=== PATIENT | female | born 1960 | race Caucasian/White ===

== ENCOUNTER → 2017-09-27 16:07 | Outpatient (CLI) | payer OTHER, SELFPAY ==
--- NOTE | 2017-09-27 16:10 | HPBI_ITS ---
MAMMOGRAPHY - BILATERAL SCREENING REASON FOR EXAM: Female, 57 years old. Routine annual screening examination. PERTINENT HISTORY: Grandmother with breast cancer. Remote left stereotactic breast biopsy. TECHNIQUE: Digital bilateral breast xiomara (3D mammographic acquisition) in the CC and MLO projections. 2-D mediolateral oblique (MLO) and craniocaudad (CC) views of both breasts were obtained. CAD: Full Field Digital Mammography with Computer Added Detection was performed. COMPARISON: Comparison is made with prior study dated June 22, 2016 and June 04, 2015. FINDINGS: Breast Composition: There are scattered areas of fibroglandular density. There are no dominant masses or suspicious calcifications. Once again, a tissue clip marker is seen in the upper deep midportion of the left breast. Stable benign-appearing bilateral axillary lymph nodes. No other significant abnormalities are identified. There has been no significant change since the prior study. HPBI/SCREENING MAMM (CAD), BILAT IMPRESSION: Stable bilateral screening mammogram. Yearly follow-up mammogram recommended. (A) ASSESSMENT CATEGORY: BIRADS Category 2: Benign. A letter regarding these results will be sent to the patient by the facility within 30 days. Approximately 10% of breast cancers are not detected by mammography. A normal mammogram should not delay biopsy of a clinically suspicious abnormality. [id number] Electronically Signed: Brayan Anthony MD at 8:43 EST Tel [phone], Service support ,
== END ==
PROVIDERS: Family Provider Internal Medicine; PCP Internal Medicine; Visit Provider Internal Medicine
DX: Z12.31 Encounter for screening mammogram for malignant neoplasm of breast (principal)
CPT/HCPCS: 77063; 77067

== ENCOUNTER → 2017-11-10 07:55 | Outpatient (CLI) | payer OTHER, SELFPAY ==
--- NOTE | 2017-11-10 07:57 | US_ITS ---
STUDY: ABDOMINAL ULTRASOUND - RIGHT UPPER QUADRANT REASON FOR VISIT: Female, 57 years old. History of fatty infiltration of liver. TECHNIQUE: Ultrasound evaluation of the right upper quadrant was performed with real-time and static minor-scale imaging. TECHNICAL QUALITY: Adequate. COMPARISON: Comparison is made with prior examination dated August 2011. FINDINGS: Liver: The liver measures 15.6 cm. There is increased echogenicity consistent with fatty infiltration. The bile ducts are within normal limits. There is hepatic color flow. The direction of portal flow is hepatopetal. There is no demonstrated mass lesion. Gallbladder: The patient is status post cholecystectomy. Common Bile Duct (C.B.D.): The common bile duct measures 4.5 mm. Pancreas: Normal size of the head, body and tail of the pancreas. There is normal echogenicity of the pancreas. There is no demonstrated pancreatic mass or cyst. Right Kidney: Normal size of the right kidney. The right kidney measures 10.2 cm x 4.87 x 5.0 cm. Normal renal cortex. The right cortex measures 1.2 cm. There is no demonstrated renal mass or cyst. There is no right hydronephrosis. US/Liver IMPRESSION: Fatty infiltration of the liver. Status post cholecystectomy. Electronically Signed: Brayan Anthony MD at 10:59 EDT Tel [phone], Service support ,
== END ==
PROVIDERS: Family Provider Internal Medicine; PCP Internal Medicine; Visit Provider Internal Medicine
DX: K76.0 Fatty (change of) liver, not elsewhere classified (principal); Z90.49 Acquired absence of other specified parts of digestive tract
CPT/HCPCS: 76705

== ENCOUNTER → 2018-07-04 08:09 | Outpatient (CLI) | payer OTHER, SELFPAY ==
--- NOTE | 2018-07-04 08:15 | BD_ITS ---
STUDY: DUAL ENERGY X-RAY ABSORPTIOMETRY / DXA REASON FOR EXAM: Female, 58 years old. The patient is postmenopausal. No loss of height. TECHNIQUE: Bone Mineral Density (BMD) measurements of lumbar spine and bilateral hips were obtained. COMPARISON: Comparison is made with prior examination dated June 22, 2016. FINDINGS: Lumbar Spine (L1-L4): g/cm2 (1.018) / T-score (-1.3) / Z-score (-0.1) Findings are suggestive of osteopenia with a moderate fracture risk. Left Femur Total: g/cm2 (0.959) / T-score (-0.4) / Z-score (0.5) Left Femoral Neck: g/cm2 (0.812) / T-score (-1.7) / Z-score (-0.4) Right Femur Total: g/cm2 (0.925) / T-score (-0.7) / Z-score (0.3) Right Femoral Neck: g/cm2 (0.825) / T-score (-1.5) / Z-score (-0.3) The T-Scores on the most recent prior examination were: Lumbar Spine (L1-L4): There has been worsening of bone density since the previous examination. Left Femur Total: which represents a worsening of 7.9%. Right Femur Total: which represents a worsening of 5.0%. BD/Dexa Bone Density Study IMPRESSION: The patient is considered osteopenic as outlined below according to World Mack Organization (WHO) criteria with a moderate fracture risk. There has been worsening of bone density since the previous examination. Reference Information: The T-score is the number of standard deviations above or below the standard which is normal for young adults at their peak bone mineral density. The World Health Organization (WHO) interprets the T-scores as follows: Above -1 Normal bone density Between -1 and -2.5 Osteopenia Equal to / or below -2.5 Osteoporosis As a practical clinical guideline, osteopenia may be graded as follows: Mild -1 through -1.5 Moderate -1.6 through -2.0 Severe -2.1 through -2.4 The Z-score is the number of standard deviations above or below age-matched controls. A Z-score of less than -1.5 would be considered abnormal. References: 1. NIH Osteoporosis and Related Bone Diseases http://www.osteo.org 2. International Society for Clinical Densitometry http://www.iscd.org 3. National Osteoporosis Foundation http://www.nof.org Electronically Signed: Brayan Anthony MD at 9:45 EST Tel [phone], Service support ,
== END ==
PROVIDERS: Family Provider Internal Medicine; PCP Internal Medicine; Referring Provider Internal Medicine; Visit Provider Internal Medicine
DX: Z78.0 Asymptomatic menopausal state (principal)
CPT/HCPCS: 77080

== ENCOUNTER 2018-10-13 07:00 | Outpatient (RCR) | payer OTHER, SELFPAY ==
--- NOTE | 2018-09-15 08:27 | HP.PTEVAL ---
Patient's Visit Information RYAN PINEDA is a 58 year old F referred to Physical Therapy by Anisha Puga DO with a diagnosis of LUMBAR RADICULOPATHY. Date of Evaluation: 09/15/18 Physical Therapist: Andrea Tee PT, Cert MDT, OCS - Visit Plan Frequency: 2x /Week Duration: 4 Weeks Plan: madhuri ex's,DLS ABD/BACK ,POSTURAL EX',MODALITIES PRN - Subjective Findings: This 58 y/o female presents to physical therapy with lumbar radiculopathy right leg. Patient has symptoms intermmtant for many months.Seen DR christopher PT . Symptoms worse with bending,lifting ,walking ,slouched,standing. Symptoms better with good posture. Symptoms affect sleeping. Bowel/bladder-. Denies parathesia/tingling. Coughing/sneezing -. Location of symptoms lateral hip to knee. Patient has received no traetment. No trauma. Patient cant take MEDS.Patient pain affect QOL and function. SOCIAL: . VOCATION: [employer] - Pain Bilateral Back Pain Intensity (Out of 10): 0 Left Lower Extremity Pain Intensity (Out of 10): 4 Pain Intensity Range: 10 - Objective POSTURE: mild foward posture. GAIT: normal alexis reciprcal pattern. NEURO: denies parathesia/tingling, reflexes L3-4,L4-5,L5-S1 1/3. PALAPTION: unremarkable. SYMMTRIES: alighn. LUMBAR ROM: flexion WNL,extension min loss,side glides min loss. FLEXABLITY: hams min tight - Special Tests L/S Slump test left side: Negative L/S Slump test right side: Negative L/S Left Straight Leg Raise: Negative L/S Right Straight Leg Raise: Negative Lumbar Standing: Flexion - Mechanical Response: No effect Lumbar Standing: Flexion - Symptoms During Testing: Increases Lumbar Standing: Flexion - Symptoms After Testing: No worse Lumbar Standing: Extension - Mechanical Response: No effect Lumbar Standing: Extension - Symptoms During Testing: Decreases Lumbar Standing: Extension - Symptoms After Testing: Better Lumbar Lying: Flexion - Mechanical Response: No effect Lumbar Lying: Flexion - Symptoms During Testing: No effect Lumbar Lying: Flexion - Symptoms After Testing: No effect Lumbar Lying: Extension - Mechanical Response: No effect Lumbar Lying: Extension - Symptoms During Testing: Abolishes Lumbar Lying: Extension - Symptoms After Testing: Better - Goals Goal 1:: Independant with HEP Goal Time Frame: 4-6 Weeks Goal 2:: Independant with posture /body mechanics Goal Time Frame: 4-6 Weeks Goal 3:: Patient to decrease lumbar pain by 50% or greater to improve function Goal Time Frame: 4-6 Weeks Goal 4:: Patient d/c to prophalaxis. Goal Time Frame: 4-6 Weeks Goal 5:: Patient improve lumbar ROM for function of recovery Goal Time Frame: 4-6 Weeks Goal 6:: Patient to improve MARJORIE lumbar score by 50% or greater to improve QOL. Goal Time Frame: 4-6 Weeks - Rehabilitation Potential Physical Therapy Diagnosis: This 58 y/o female presents with lumbar radiculopathy with symptoms radiating to lateral thigh with possble derrangement with pain ,symptoms worse with flexion type of activities thus benifit from skilled PT Rehabilitation Potential: Good - Anticipated Interventions Patient/Client Instruction: Educate patient on: Condition, Plan of Care For the Purpose of:: To decrease pain, To increase ROM, To improve muscle performance and motor function, To improve ability to perform ADL's, To increase tolerance to activity/condition/position, To improve performance and independence with ADL's, To improve ability of physical actions for home/community/work/leisure, To improve health of tissue, To decrease soft tissue restriction, To increase flexibility/ROM, To improve ability to perform tasks related to life management Therapeutic Exercise to Include: Strength training, Body mechanics, Postural training, Flexibilty training, Dynamic Lumbar Stabilization, Madhuri Exercises For the Purpose of:: To decrease pain, To increase ROM, To improve muscle performance and motor function, To increase tolerance to activity/condition/position, To decrease level of supervision to perform tasks, To improve health of tissue, To decrease soft tissue restriction, To increase flexibility/ROM, To improve ability to perform tasks related to life management Manual Therapy Techniques to Include: Mobilization Comment: LUMBAR For the Purpose of:: To decrease pain, To increase ROM, To improve health of tissue, To decrease soft tissue restriction TENS: Yes IF ES: Yes Cryotherapy (ice pack, ice massage): Yes Thermo therapy (hot pack): Yes Ultrasound (thermal/non thermal): Yes For the Purpose of:: To decrease pain, To increase ROM, To improve health of tissue, To decrease soft tissue restriction, To increase flexibility/ROM, To improve ability to perform tasks related to life management Thank you for the opportunity to evaluate your patient. For Medicare and Medicare HMO plans, please review the plan of care and approve it. It will need to be FAXED BACK to us at [phone] for Medicare purposes. For Medicare only, by signing this I certify the plan of care. Please let me know if there are questions or concerns regarding this plan of care. Physician Signature: Date:
--- NOTE | 2018-10-13 07:26 | HP.PTDCSUM ---
HP - PT D/C Summary It has been my pleasure to treat RYAN PINEDA under orders from Anisha Puga DO, for the diagnosis of LUMBAR RADICULOPATHY for a total of 7 visit(s). Discharge Date: 10/13/18 Please see the following information for a summary of their discharge status. - Subjective Subjective: Doing well ..back to normal activity - Pain Bilateral Back Pain Intensity (Out of 10): 0 Left Lower Extremity Pain Intensity (Out of 10): 0 - Overall Improvement % Improvement: 95 - Objective Objective/Function: POSTURE: WFL. GAIT: NORMAL KRISTI. NEURO: INTACT. MMT: 4/5. LUMBAR ROM: flexion/extension WFL,side glides min. -SLR - Goals Goal 1:: Independant with HEP Goal Progress: Goal Met Goal 2:: Independant with posture /body mechanics Goal Progress: Goal Met Goal 3:: Patient to decrease lumbar pain by 50% or greater to improve function Goal Progress: Goal Met Goal 4:: Patient d/c to prophalaxis. Goal Progress: Goal Met Goal 5:: Patient improve lumbar ROM for function of recovery Goal Progress: Goal Met Goal 6:: Patient to improve MARJORIE lumbar score by 50% or greater to improve QOL. Goal Progress: Goal Met - Plan Plan: D/C TO HEP - D/C Information Discharge Comments: HE[facility] If there are questions or concerns regarding this patient's physical therapy, please feel free to call me at [phone]. Thank you for the referral of this patient. Sincerely, Andrea Tee, PT, Cert MDT, OCS
== END 2018-10-13 19:00 | disposition home or self-care (01) ==
LOC: PT 07:00
PROVIDERS: Family Provider Internal Medicine; PCP Internal Medicine; Referring Provider Internal Medicine; Visit Provider Internal Medicine
DX: M54.5 Low back pain (principal); M54.16 Radiculopathy, lumbar region
CPT/HCPCS: 97014; 97110; 97162; 97530; G0283

== ENCOUNTER → 2018-10-18 08:01 | Outpatient (CLI) | payer OTHER, SELFPAY ==
--- NOTE | 2018-10-18 07:02 | BI_ITS ---
MAMMOGRAPHY - BILATERAL SCREENING REASON FOR EXAM: Female, 58 years old. Routine annual screening examination. PERTINENT HISTORY: Grandmother with breast cancer. Remote left stereotactic breast biopsy. TECHNIQUE: Digital bilateral breast xiomara (3D mammographic acquisition) in the CC and MLO projections. 2-D mediolateral oblique (MLO) and craniocaudad (CC) views of both breasts were obtained. CAD: Full Field Digital Mammography with Computer Added Detection was performed. COMPARISON: Comparison is made with prior study dated September 27, 2017 and June 22, 2016. FINDINGS: Breast Composition: There are scattered areas of fibroglandular density. There are no dominant masses or suspicious calcifications. Questionable 9 mm well-defined nodule in the inferior medial midportion of the left breast. Correlation with ultrasound is recommended. Once again, a tissue clip marker is seen in the upper deep midportion of the left breast. Stable benign-appearing bilateral axillary lymph nodes. No other significant abnormalities are identified. BI/SCREENING MAMM (CAD), BILAT IMPRESSION: Questionable 9 mm well-defined nodule in the inferior medial portion of the left breast. Correlation with ultrasound is recommended. ASSESSMENT CATEGORY: BIRADS Category 0: Incomplete. Need additional imaging evaluation. A letter regarding these results will be sent to the patient by the facility within 30 days. Approximately 10% of breast cancers are not detected by mammography. A normal mammogram should not delay biopsy of a clinically suspicious abnormality. [id number] Electronically Signed: Brayan Anthony, at 9:09 EST , Service support ,
== END ==
PROVIDERS: Family Provider Internal Medicine; PCP Internal Medicine; Referring Provider Internal Medicine; Visit Provider Internal Medicine
DX: Z12.31 Encounter for screening mammogram for malignant neoplasm of breast (principal); Z80.3 Family history of malignant neoplasm of breast
CPT/HCPCS: 77063; 77067

== ENCOUNTER → 2018-10-26 07:50 | Outpatient (CLI) | payer OTHER, SELFPAY ==
--- NOTE | 2018-10-26 07:52 | US_ITS ---
STUDY: ULTRASOUND BREAST - LEFT REASON FOR EXAM: Female, 58 years old. Abnormal screening mammogram. TECHNIQUE: Axial and longitudinal images of the LEFT breast were performed with a high resolution ultrasound transducer. COMPARISON: Comparison is made with prior mammogram dated October 18, 2018 and prior ultrasound of the breast dated June 25, 2011. FINDINGS: LEFT Breast: There is a 4 mm x 10 mm x 4 mm cyst at the 7:00 position of the breast at 3 cm from the nipple. A septation is seen within it. This corresponds to the mammographic abnormality. Aspiration of this cyst is recommended. US/Breast Limited Unilateral IMPRESSION: The mammographic abnormality corresponds to a 4 mm x 10 mm x 4 mm cyst at the 7:00 position of the breast at 3 cm from the nipple. A septation is seen within it. Percutaneous drainage is recommended. ASSESSMENT CATEGORY: BIRADS Category 4: Suspicious - Biopsy Should Be Considered. A letter regarding these results will be sent to the patient by the facility within 30 days. Electronically Signed: Brayan Anthony, at 9:21 EST , Service support ,
== END ==
PROVIDERS: Family Provider Internal Medicine; PCP Internal Medicine; Referring Provider Internal Medicine; Visit Provider Internal Medicine
DX: N60.02 Solitary cyst of left breast (principal)
CPT/HCPCS: 76642

== ENCOUNTER → 2018-11-14 11:46 | Outpatient (CLI) | payer OTHER, SELFPAY ==
[2018-11-08 08:48] VITALS: BMI 32.2
--- NOTE | 2018-11-14 10:00 | BRBX_PTH ---
PATIENT: RYAN PINEDA LOC: [facility] U#:[id number] AGE/SX: 65/F ROOM: RE11/14/[address]: Dr. Shawn Lamb MD : 1960 BED: DIS: SPEC #: [id number] RECD: 11/14/18 11:06 STATUS: SEGUN KEELEY #: [id number] GIO: 11/14/18 10:[address]: Shawn Lamb DEPT: SURGICAL PATHOLOGY RECD BY: Carmelo Tovar ENTERED: 11/14/18 12:00 SP TYPE: BREAST BX OTHR DR: Dr. Anisha Puga, DO Tissues: Left breast, NOS Procedures: Surgery Specimen Level IV HEADER OPERATION: Ultrasound guided left breast biopsy PRE-OP DIAGNOSIS: Abnormal mammogram, left breast, R92.8 TISSUE SUBMITTED: Mammotome biopsy, left breast ISCHEMIC TIME: Less than 30 seconds FIXATION TIME: 7.5 hours MICROSCOPIC DIAGNOSIS Left breast, ultrasound-guided mammotome core biopsy: Focal fibrocystic changes. Negative for atypia or malignancy. THIAGO:shayy 11/15/18 COMMENT Correlation with clinical, radiologic findings and appropriate follow up are necessary. Please make reference to previous specimen ([id number]), left breast, stereotactic needle core biopsy with diagnosis of fibrocystic changes, adenosis and intraductal hyperplasia without atypia. MICROSCOPIC DESCRIPTION Slides are reviewed. GROSS DESCRIPTION Received in fixative is one container labeled with the patient's name and designated mammotome biopsy left breast. The specimen consists of multiple elongated fragments of del castillo-yellow fibroadipose tissue that in aggregate measure 1.5 x 0.5 x 0.1 cm. The entire specimen is submitted in one cassette. / THIAGO:shayy 11/14/18 TC:5 CPT: 53862
== END ==
PROVIDERS: Family Provider Internal Medicine; PCP Internal Medicine; Referring Provider Surgery; Visit Provider Surgery
DX: R92.8 Other abnormal and inconclusive findings on diagnostic imaging of breast (principal)
CPT/HCPCS: 88305

== ENCOUNTER → 2019-01-03 10:51 | Outpatient (CLI) | payer OTHER, SELFPAY ==
[2018-11-14 13:16] VITALS: BMI 32.2
--- NOTE | 2019-01-03 10:53 | US_ITS ---
STUDY: ABDOMINAL ULTRASOUND - RIGHT UPPER QUADRANT REASON FOR VISIT: Female, 58 years old. Fatty infiltration of the liver. TECHNIQUE: Ultrasound evaluation of the right upper quadrant was performed with real-time and static minor-scale imaging. TECHNICAL QUALITY: Adequate. COMPARISON: Comparison is made with prior study dated November 10, 2017. FINDINGS: Liver: The liver measures 15.3 cm. There is increased echogenicity consistent with fatty infiltration. The bile ducts are within normal limits. There is hepatic color flow. The direction of portal flow is hepatopetal. There is no demonstrated mass lesion. Gallbladder: The patient is status post cholecystectomy. Common Bile Duct (C.B.D.): The common bile duct measures 3.6 mm. Pancreas: Normal size of the head, body and tail of the pancreas. There is normal echogenicity of the pancreas. There is no demonstrated pancreatic mass or cyst. Right Kidney: Normal size of the right kidney. The right kidney measures 10.2 cm x 4.4 cm x 4.0 cm. Normal renal cortex. The right cortex measures 1.4 cm. There is no demonstrated renal mass or cyst. There is no right hydronephrosis. US/Liver IMPRESSION: Fatty infiltration of the liver. Status post cholecystectomy. Electronically Signed: Brayan Anthony, at 15:21 EDT , Service support ,
== END ==
PROVIDERS: Family Provider Internal Medicine; PCP Internal Medicine; Referring Provider Internal Medicine; Visit Provider Internal Medicine
DX: K76.0 Fatty (change of) liver, not elsewhere classified (principal)
CPT/HCPCS: 76705

== ENCOUNTER → 2019-01-19 14:31 | Outpatient (CLI) | payer SELFPAY ==
[2018-11-14 13:16] VITALS: BMI 32.2
--- NOTE | 2019-01-19 14:37 | CT_ITS ---
STUDY: CARDIAC CALCIUM SCORING - CT CHEST REASON FOR EXAM: Female, 58 years old. Screening RADIATION DOSAGE (If Supplied By Facility): CTDIvol = ( 12 ) mGy, DLP = ( 195 ) mGycm TECHNIQUE: Axial non-enhanced images were acquired through the heart for the sole purpose of measuring coronary artery calcium. Individualized dose optimization techniques were used for this CT. COMPARISON: None. FINDINGS: Please see the patient's medical record for a personalized calcium score. The heart is normal in size. There is no pericardial effusion. The visualized lungs are clear. CT/Limited Chest CT w/CCTA IMPRESSION: Please see the patient's medical record for a personalized calcium score. Please go to: [email or web address] , for a description of the calculator. Electronically Signed: Jewel Huynh, at 16:46 EDT Tel , Service support ,
[2019-01-19 14:45] VITALS: BP 140/81; PULSE 70; RESP 16; O2SAT 98; BMI 34.0
--- NOTE | 2019-01-22 07:47 | CA.SCORE ---
Calcium Scoring Date of Study:: 01/19/19 Coronary Calcium Scoring: High-resolution Computed Tomographic imaging of the chest was performed on [ ], with particular attention paid to the coronary arteries. Images from the examination were analyzed for the presence and extent of coronary artery calcification , using coronary calcium quantification software. The patient tolerated the procedure well and there were no complications. The results of the coronary calcification analysis are provided below. - Findings Left Main (LM): 0 Left Anterior Descending (LAD): 0 Left Circumflex (LCX): 0 Right Coronary Artery (RCA): 0 Total Agatston Score: 0 Percentile Rankin - Conclusion Calcium Scoring Interpretation: Calcium Score Interpretation 0 No identifiable atherosclerotic plaque. Very low cardiovascular disease risk. <5% chance of presence coronary artery disease A Negative Examination 1-10 Minimal Plaque burden. Significant coronary artery disease very unlikely. 11-100 Mild plaque burden. Likely mild or minimal coronary atherosclerosis. 101-400 Moderate plaque burden Moderate non-obstructive coronary artery disease highly likely. Over 400 Extensive plaque burden. High likelihood of at least one significant coronary stenosis (>50% diameter) Calcium Score: 0 Negative Examination - No significant atherosclerotic plaquing is noted. Full evaluation of cardiac risk should include assessment of her cardiac risk factors.
== END ==
PROVIDERS: Family Provider Internal Medicine; PCP Internal Medicine; Referring Provider Internal Medicine; Visit Provider Internal Medicine
DX: E78.5 Hyperlipidemia, unspecified (principal)
CPT/HCPCS: 75571; 76380

== ENCOUNTER → 2019-06-18 | Outpatient (CLI) | payer OTHER, SELFPAY ==
[2019-01-19 14:45] VITALS: BMI 34.0
--- NOTE | 2019-06-18 08:53 | BI_ITS ---
MAMMOGRAPHY - UNILATERAL DIAGNOSTIC: LEFT BREAST REASON FOR EXAM: Female, 59 years old. Six-month follow-up examination for prior left ultrasound guided aspiration. PERTINENT HISTORY: Grandmother with breast cancer. Remote left stereotactic breast biopsy. TECHNIQUE: Digital unilateral breast xiomara (3D mammographic acquisition) in the CC and MLO projections. 2-D mediolateral oblique (MLO) and craniocaudad (CC) views of both breasts were obtained. CAD: Full Field Digital Mammography with Computer Added Detection was performed. COMPARISON: Comparison is made with prior study dated September 28, 2018. FINDINGS: Breast Composition: There are scattered areas of fibroglandular density. There are no dominant masses or suspicious calcifications. Tissue clip marker is seen in the inferior slightly medial aspect of the left breast. The nodular density as decrease in size as compared to prior study. No other significant abnormalities are identified. There has been no significant change since the prior study. BI/DIAG MAMM W/CAD, UNILAT IMPRESSION: Stable unilateral diagnostic mammogram. One year follow-up mammogram recommended. (A) ASSESSMENT CATEGORY: BIRADS Category 2: Benign. A letter regarding these results will be sent to the patient by the facility within 30 days. Approximately 10% of breast cancers are not detected by mammography. A normal mammogram should not delay biopsy of a clinically suspicious abnormality. Electronically Signed: Brayan Anthony, at 10:46 EDT , Service support ,
--- NOTE | 2019-06-18 08:54 | US_ITS ---
STUDY: ULTRASOUND BREAST - LEFT REASON FOR EXAM: Female, 59 years old. Six-month follow-up for left breast biopsy. TECHNIQUE: Axial and longitudinal images of the LEFT breast were performed with a high resolution ultrasound transducer. COMPARISON: Comparison is made with prior ultrasound of the breasts dated October 26, 2018. FINDINGS: LEFT Breast: There is a 4 mm x 5 mm x 3 mm hypoechoic well-defined nodular density at the 7:00 position of the breast at 3 cm from nipple. A tissue clip marker is seen within it. The cystic component has been drained. US/Breast Limited Unilateral IMPRESSION: Tissue clip marker is seen within a 4 mm x 5 mm x 3 mm hypoechoic solid nodule at the 7:00 position of the breast at 3 cm from the nipple. ASSESSMENT CATEGORY: BIRADS Category 2: Benign. A letter regarding these results will be sent to the patient by the facility within 30 days. Electronically Signed: Brayan Anthony, at 9:30 EDT , Service support ,
== END | disposition home or self-care (01) ==
LOC: OPBI 08:50
PROVIDERS: Family Provider Internal Medicine; PCP Internal Medicine; Referring Provider Internal Medicine; Visit Provider Internal Medicine
DX: R92.8 Other abnormal and inconclusive findings on diagnostic imaging of breast (principal)
CPT/HCPCS: 76642; 77061; 77063; 77065; G0279

== ENCOUNTER → 2020-06-19 09:33 | Outpatient (CLI) | payer OTHER, SELFPAY ==
[2019-01-19 14:45] VITALS: BMI 34.0
--- NOTE | 2020-06-19 09:36 | US_ITS ---
STUDY: ABDOMINAL ULTRASOUND - RIGHT UPPER QUADRANT REASON FOR VISIT: Female, 60 years old H/O FATTY LIVER TECHNIQUE: Ultrasound evaluation of the right upper quadrant was performed with real-time and static minor-scale imaging. TECHNICAL QUALITY: Adequate. COMPARISON: None. FINDINGS: Liver: The liver measures 16.6 cm. There is increased echogenicity consistent with fatty infiltration. The bile ducts are within normal limits. There is hepatic color flow. The direction of portal flow is hepatopetal. There is no demonstrated mass lesion. Gallbladder: The patient is status post cholecystectomy. Common Bile Duct (C.B.D.): The common bile duct measures 3.0 mm. Pancreas: Normal size of the head, body and tail of the pancreas. There is normal echogenicity of the pancreas. There is no demonstrated pancreatic mass or cyst. Right Kidney: Normal size of the right kidney. The right kidney measures 10.7 cm x 5.2 cm x 5.0 cm. Normal renal cortex. The right cortex measures 1.4 cm. There is no demonstrated renal mass or cyst. There is no right hydronephrosis. US/Liver IMPRESSION: Fatty infiltration of the liver. Electronically Signed: Brayan Anthony, at 15:50 EDT , Service support ,
--- NOTE | 2020-06-19 09:36 | BI_ITS ---
MAMMOGRAPHY - BILATERAL SCREENING REASON FOR EXAM: Female, 60 years old. Routine annual screening examination. PERTINENT HISTORY: Grandmother with breast cancer. Remote left stereotactic breast biopsy. TECHNIQUE: Digital bilateral breast ambar (3D mammographic acquisition) in the CC and MLO projections. 2-D mediolateral oblique (MLO) and craniocaudad (CC) views of both breasts were obtained. CAD: Full Field Digital Mammography with Computer Added Detection was performed. COMPARISON: Comparison is made with prior study dated 10/18/2018 and 09/27/2017. FINDINGS: Breast Composition: There are scattered areas of fibroglandular density. There are no dominant masses or suspicious calcifications. A tissue clip marker is seen within 8.4 mm nodule in the upper slightly medial aspect of the left breast. No other significant abnormalities are identified. There has been no significant change since the prior study. BI/SCREEN MAMM (CAD) W/AMBAR BILAT IMPRESSION: Stable bilateral screening mammogram. Yearly follow-up mammogram recommended. (A) ASSESSMENT CATEGORY: BIRADS Category 2: Benign. A letter regarding these results will be sent to the patient by the facility within 30 days. Approximately 10% of breast cancers are not detected by mammography. A normal mammogram should not delay biopsy of a clinically suspicious abnormality. [id number] Electronically Signed: Brayan Anthony, at 11:29 EDT , Service support ,
== END ==
PROVIDERS: PCP Internal Medicine; Referring Provider Internal Medicine; Visit Provider Internal Medicine
DX: K76.0 Fatty (change of) liver, not elsewhere classified (principal); Z12.31 Encounter for screening mammogram for malignant neoplasm of breast
CPT/HCPCS: 76705; 77063; 77067

== ENCOUNTER → 2020-08-25 14:47 | Outpatient (CLI) | payer OTHER, SELFPAY ==
[2019-01-19 14:45] VITALS: BMI 34.0
[2020-08-25 17:49] LABS: Absolute Lymphocyte Count 2.14 X10^3/uL (0.83-4.51); Absolute Neutrophil Count 7.1 X10^3/uL (2.0-7.7); Basophil# 0.06 X10^3/uL; Basophil% 0.6 % (0-1); Eosinophil# 0.22 X10^3/uL; Eosinophils% 2.2 % (0-5); Hematocrit 39.4 % (37-47); Hemoglobin 13.5 g/dL (12.0-15.0); Lymphocyte # 2.14 X10^3/ul (4.0); Lymphocyte % 21.2 % (19-41); Mean Corp Hgb Conc 34.3 g/dL (32-36); Mean Corpuscular Hgb 30.8 pg (27.0-32.0); Mean Corpuscular Volume 89.7 fL (81-99); Mean Platelet Vol. 10.1 fl (6.2-12.0); Monocyte# 0.58 X10^3/uL; Monocyte% 5.8 % (0-10); NRBC Flagged by Analyzer 0 % (0-5); Neutrophil # 7.05 X10^3/uL (2.7-7.7); Neutrophil % 69.9 % (47-70); Platelet Count 257 K/mm3 (150-450); RBC Distribution Width CV 13.6 % (11.6-14.6); RBC Distribution Width SD 44.3 fl (35.1-43.9); Red Blood Count 4.39 M/mm3 (4.2-5.4); White Blood Count 10.1 K/mm3 (4.4-11.0)
[2020-08-25 18:05] LABS: Vitamin D,25 Hydroxy 54.8 ng/mL
[2020-08-25 18:12] LABS: AST(SGOT) 13 U/L (15-37); Alanine Aminotransfer ALT/SGPT 33 U/L (13-56); Albumin, Serum 3.9 g/dL (3.2-5.0); Alkaline Phosphatase 97 U/L (45-117); Anion Gap 7 (5-15); BUN 12 mg/dL (7-18); BUN/Creat Ratio 16.4 RATIO (10-20); Calcium,Total 8.8 mg/dL (8.5-10.1); Chloride 104 mmol/L (98-107); Cholesterol 227 mg/dL (200); Creatinine, Serum 0.73 mg/dL (0.55-1.02); EST Glomerular Filtration Rate 86 mL/min (>60); Est Glom Filt Rate - Afr Amer 104 mL/min (>60); Globulin 3.9 g/dL (2.2-4.2); Glucose 120 mg/dL (74-106); High Density Lipoprotein 54 mg/dL; Potassium 3.5 mmol/L (3.5-5.1); Protein, Total 7.8 g/dL (6.4-8.2); Sodium Level 138 mmol/L (136-145); Triglycerides 119 mg/dL; Very Low Density Lipoprotein 24 mg/dL (5-40)
[2020-08-25 18:28] LABS: Creatinine, Urine (random) < 13.00 mg/dL (NO RANGE EST.); Microalbumin,Random Urine < 5.0 mg/L (NO RANGE EST.)
== END ==
PROVIDERS: PCP Internal Medicine; Referring Provider Internal Medicine; Visit Provider Internal Medicine
DX: E11.9 Type 2 diabetes mellitus without complications (principal); E55.9 Vitamin D deficiency, unspecified
CPT/HCPCS: 36415; 80053; 80061; 82043; 82306; 82570; 85025

== ENCOUNTER 2021-06-24 11:31 | Outpatient (CLI) | payer OTHER, SELFPAY ==
[2021-06-24] MEDS: 0.9% Saline Lock 10 ML Syringe IV (11:38)
[2021-06-24 11:43] VITALS: BP 135/77; PULSE 107; RESP 18; TEMP 38.5; O2SAT 97; BMI 34.5
--- NOTE | 2021-06-24 11:45 | NURSING ---
Pt has temp 101.3. Pt reports she took Tylenol at 10:00 today. Too early to give PRN dose of tylenol for fever.
[2021-06-24 12:35] VITALS: BP 117/67; PULSE 88; RESP 16; TEMP 37.2; O2SAT 98
[2021-06-24 13:32] VITALS: BP 106/64; PULSE 84; RESP 16; TEMP 37.4; O2SAT 99
== END 2021-06-24 13:33 | disposition home or self-care (01) ==
LOC: MS3OUT 11:31 → MS3 11:32
PROVIDERS: PCP Internal Medicine; Referring Provider Nurse Practitioner Adult Health; Visit Provider Nurse Practitioner Adult Health
DX: U07.1 COVID-19 (principal)
CPT/HCPCS: J7050; M0245; Q0245; A4216

== ENCOUNTER → 2021-07-15 07:56 | Outpatient (CLI) | payer OTHER, SELFPAY ==
--- NOTE | 2021-07-15 08:00 | BI_ITS ---
MAMMOGRAPHY - BILATERAL SCREENING 3-D TOMOSYNTHESIS REASON FOR EXAM: Female, 61 years old. Routine screening PERTINENT HISTORY: Grandmother with breast cancer.. TECHNIQUE: 2-D mammograms and 3-D Tomosynthesis of the breast (s) were performed. CAD was performed. COMPARISON: 06/19/2020 FINDINGS: The breast composition is composed of scattered fibroglandular density. Scattered benign calcifications are seen. No dense spiculated masses or suspicious microcalcifications are identified. No architectural distortion is identified. There is no skin thickening or retraction. Stable 8 mm nodule in the upper outer quadrant of the left breast There has been no significant change since the prior study. BI/SCRN MAMM (CAD)W/AMBAR BILAT IMPRESSION: No mammographic signs of malignancy. Routine yearly mammograms recommended. ASSESSMENT CATEGORY: BIRADS Category 1: Negative. A letter regarding these results will be sent to the patient by the facility within 30 days. FOLLOW UP RECOMMENDATION: Yearly follow up mammogram recommended. (A) Approximately 10% of breast cancers are not detected by mammography. A normal mammogram should not delay biopsy of a clinically suspicious abnormality. Electronically Signed: Herman Sykes MD at 10:28 EST , Service support ,
--- NOTE | 2021-07-15 08:26 | BD_ITS ---
STUDY: DUAL ENERGY X-RAY ABSORPTIOMETRY / DXA REASON FOR EXAM: Female, 61 years old. Z780. Patient is postmenopausal. TECHNIQUE: Bone Mineral Density (BMD) measurements of lumbar spine and bilateral hips were obtained. COMPARISON: Comparison is made with prior study 07/04/2018 and 06/22/2016. FINDINGS: Lumbar Spine (L1-L4): g/cm2 (0.830) / T-score (-1.7) / Z-score (-0.1) Findings are suggestive of osteopenia with a moderate fracture risk. Left Femur Total: g/cm2 (0.894) / T-score (-0.4) / Z-score (0.7) Left Femoral Neck: g/cm2 (0.637) / T-score (-1.9) / Z-score (-0.5) Right Femur Total: g/cm2 (0.876) / T-score (-0.5) / Z-score (0.6) Right Femoral Neck: g/cm2 (0.651) / T-score (-1.8) / Z-score (-0.4) The T-Scores on the most recent prior examination were: Lumbar Spine (L1-L4): There has been worsening of bone density since the previous examination. Left Femur Total: which represents a worsening of 0.1%. Right Femur Total: which represents an improvement of 1.7%. BD/Dexa Bone Density Study IMPRESSION: The patient is considered osteopenic as outlined below according to World Mack Organization (WHO) criteria with a moderate fracture risk. There has been worsening of bone density since the previous examination. Reference Information: The T-score is the number of standard deviations above or below the standard which is normal for young adults at their peak bone mineral density. The World Health Organization (WHO) interprets the T-scores as follows: Above -1 Normal bone density Between -1 and -2.5 Osteopenia Equal to / or below -2.5 Osteoporosis As a practical clinical guideline, osteopenia may be graded as follows: Mild -1 through -1.5 Moderate -1.6 through -2.0 Severe -2.1 through -2.4 The Z-score is the number of standard deviations above or below age-matched controls. A Z-score of less than -1.5 would be considered abnormal. References: 1. NIH Osteoporosis and Related Bone Diseases www osteo.org 2. International Society for Clinical Densitometry www iscd.org 3. National Osteoporosis Foundation www nof.org Electronically Signed: Brayan Anthony MD at 12:58 EST , Service support ,
--- NOTE | 2021-07-15 08:42 | US_ITS ---
STUDY: ABDOMINAL ULTRASOUND - RIGHT UPPER QUADRANT REASON FOR VISIT: Female, 61 years old FATTY LIVER TECHNIQUE: Ultrasound evaluation of the right upper quadrant was performed with real-time and static minor-scale imaging. TECHNICAL QUALITY: Adequate. COMPARISON: Abdomen ultrasound from 06/19/2020, 01/03/2019. FINDINGS: Liver: The liver measures 14.7 cm. Redemonstration of diffuse hepatic steatosis. The bile ducts are within normal limits. There is hepatic color flow. The direction of portal flow is hepatopetal. No hepatic masses. Gallbladder: Status post cholecystectomy. Common Bile Duct (C.B.D.): The common bile duct measures 7.6 mm, within normal limits for patient with gallbladder removed. Pancreas: Normal size of the head, body and tail of the pancreas. There is normal echogenicity of the pancreas. There is no demonstrated pancreatic mass or cyst. Right Kidney: Normal size of the right kidney. The right kidney measures 10.4 x 5.5 x 4.6 cm. Normal renal cortex. The right cortex measures 1.3 cm. There is no demonstrated renal mass or cyst. There is no right hydronephrosis. US/Liver IMPRESSION: Diffuse hepatic steatosis. No hepatic masses. Electronically Signed: Galen Cobb MD at 14:06 EST Tel , Service support ,
== END ==
PROVIDERS: PCP Internal Medicine; Visit Provider Internal Medicine
DX: Z13.820 Encounter for screening for osteoporosis (principal); Z78.0 Asymptomatic menopausal state; Z12.31 Encounter for screening mammogram for malignant neoplasm of breast; K76.0 Fatty (change of) liver, not elsewhere classified
CPT/HCPCS: 76705; 77063; 77067; 77080

== ENCOUNTER 2021-11-30 08:27 | Outpatient (CLI) | payer OTHER, SELFPAY | END 2021-11-30 23:59 | disposition home or self-care (01) | LOC: EN 08:28 | PROVIDERS: PCP Internal Medicine; Visit Provider Surgery | DX: Z01.818 Encounter for other preprocedural examination (principal) ==

== ENCOUNTER → 2022-02-26 | Outpatient (CLI) | payer OTHER, SELFPAY ==
[2022-02-26 10:46] LABS: Absolute Lymphocyte Count 1.02 X10^3/uL (0.83-4.51); Absolute Neutrophil Count 9.7 X10^3/uL (2.0-7.7); Basophil# 0.04 X10^3/uL; Basophil% 0.3 % (0-1); Eosinophil# 0.06 X10^3/uL; Eosinophils% 0.5 % (0-5); Hematocrit 40.4 % (37-47); Hemoglobin 13.4 g/dL (12.0-15.0); Lymphocyte # 1.02 X10^3/ul (0.83-4.51); Lymphocyte % 8.6 % (19-41); Mean Corp Hgb Conc 33.2 g/dL (32-36); Mean Corpuscular Hgb 29.2 pg (27.0-32.0); Mean Platelet Vol. 10.5 fl (6.2-12.0); Monocyte# 0.94 X10^3/uL; Monocyte% 7.9 % (0-10); NRBC Flagged by Analyzer 0 % (0-5); Neutrophil # 9.74 X10^3/uL (2.7-7.7); Neutrophil % 82.2 % (47-70); Platelet Count 262 K/mm3 (150-450); RBC Distribution Width CV 13.2 % (11.6-14.6); RBC Distribution Width SD 42.8 fl (35.1-43.9); Red Blood Count 4.59 M/mm3 (4.2-5.4); White Blood Count 11.9 K/mm3 (4.4-11.0)
== END | disposition home or self-care (01) ==
LOC: LABSPEC 10:37
PROVIDERS: PCP Internal Medicine; Referring Provider Internal Medicine; Visit Provider Internal Medicine
DX: R50.9 Fever, unspecified (principal)
CPT/HCPCS: 85025

== ENCOUNTER → 2022-03-04 | Outpatient (CLI) | payer OTHER, SELFPAY ==
--- NOTE | 2022-03-04 16:22 | CT_ITS ---
STUDY: CTA CHEST REASON FOR EXAM: Female, 61 years old. Elevated d-dimer. Shortness of breath. Cough. RADIATION DOSAGE (If Supplied By Facility): CTDIvol = ( 8.39 ) mGy, DLP = ( 373.52 ) mGycm TECHNIQUE: The examination was performed with the intravenous administration of IV 100mL Isovue-370. Post-processing of the angiographic images was performed, with multiplanar reformation and 3D reconstruction. Individualized dose optimization techniques were used for this CT. COMPARISON: Chest, 02/26/2022 FINDINGS: Normal enhancement of the main pulmonary artery and right and left pulmonary arteries. Normal enhancement of the bilateral peripheral pulmonary arteries. There is no demonstrated pulmonary embolism. Normal thoracic aorta and visualized great vessels. There is no demonstrated aortic dissection. Normal heart and pericardium. No coronary artery calcifications Normal mediastinum. Normal hilar regions. Normal visualized trachea and bronchi. The lungs are well expanded. Minimal reticulonodular infiltrate in the posterior right lung base. The lungs are otherwise clear. Normal pleura. Normal chest wall structures. Normal osseous structures. Normal visualized upper abdomen. CT/CTA Chest W/WO Contrast IMPRESSION: 1. No evidence of pulmonary embolus. 2. No aortic dissection or aneurysm. 3. Mild reticulonodular infiltrate in the right lower lobe. Electronically Signed: Jaun Garcia DO at 18:06 EDT Reading Location ID and State: [id number] Tel [phone], Service support ,
[2022-03-04 17:10] LABS: CREATININE FINGERSTICK < 0.9 mg/dL (0.55-1.02); EGFR FINGERSTICK > 60.0000 mL/min (>60)
== END | disposition home or self-care (01) ==
LOC: CT 16:11
PROVIDERS: PCP Internal Medicine; Referring Provider Internal Medicine; Visit Provider Internal Medicine
DX: R79.1 Abnormal coagulation profile (principal); R06.02 Shortness of breath
CPT/HCPCS: 71275; Q9967

== ENCOUNTER → 2022-03-04 | Outpatient (CLI) | payer OTHER, SELFPAY ==
[2022-03-04 15:38] LABS: D-Dimer Quantitative (DVT/PE) 0.96 FEU/ug/m (0.27-0.49)
== END | disposition home or self-care (01) ==
LOC: LABSPEC 14:54
PROVIDERS: PCP Internal Medicine; Visit Provider Internal Medicine
DX: R06.02 Shortness of breath (principal)
CPT/HCPCS: 85379

== ENCOUNTER → 2022-09-07 | Outpatient (CLI) | payer OTHER, SELFPAY ==
--- NOTE | 2022-09-07 08:54 | US_ITS ---
STUDY: ABDOMINAL ULTRASOUND - RIGHT UPPER QUADRANT REASON FOR VISIT: Female, 62 years old Fatty Liver TECHNIQUE: Ultrasound evaluation of the right upper quadrant was performed with real-time and static minor-scale imaging. TECHNICAL QUALITY: Adequate. COMPARISON: Comparison is made with prior examination dated 07/15/2021. FINDINGS: Liver: The liver measures 12 cm. There is increased echogenicity consistent with fatty infiltration. The bile ducts are within normal limits. There is hepatic color flow. The direction of portal flow is hepatopetal. There is no demonstrated mass lesion. Gallbladder: The patient is status post cholecystectomy. Common Bile Duct (C.B.D.): The common bile duct measures 6.5 mm. Pancreas: There is nonvisualization of the pancreas due to overlying bowel gas. Right Kidney: Normal size of the right kidney. The right kidney measures 10.1 cm x 5.2 cm x 5.3 cm. Normal renal cortex. The right cortex measures 1.6 cm. There is no demonstrated renal mass or cyst. There is no right hydronephrosis. US/Abdomen Limited IMPRESSION: Fatty aeration of the liver. Status post cholecystectomy. Nonvisualization of the pancreas due to overlying bowel gas. Electronically Signed: Brayan Anthony MD at 13:03 EST ,
== END | disposition home or self-care (01) ==
LOC: US 08:53
PROVIDERS: PCP Internal Medicine; Referring Provider Internal Medicine; Visit Provider Internal Medicine
DX: K76.0 Fatty (change of) liver, not elsewhere classified (principal)
CPT/HCPCS: 76705

== ENCOUNTER → 2022-09-09 | Outpatient (CLI) | payer OTHER, SELFPAY ==
--- NOTE | 2022-09-09 14:55 | CT_ITS ---
INDICATION: ABN CT OF CHEST EXAMINATION: CT CHEST WITH CONTRAST - CT Chest W/ Contrast Injection TECHNIQUE: Helically acquired images were obtained of the chest following IV contrast. A radiation dose optimization technique was used for this scan. IV Contrast dosage and agent: COMPARISON: March 04, 2022 FINDINGS: LUNGS, PLEURA AND LARGE AIRWAYS: No masses, consolidation, or edema. No pleural effusion or thickening. No pneumothorax. THYROID: No thyroid lesions. HEART AND PERICARDIUM: Heart size is normal. No pericardial effusion. VESSELS: Thoracic aorta is not dilated. No aortic dissection. No obvious central pulmonary embolism although this study was not performed with the pulmonary embolism protocol. MEDIASTINUM AND RAMSEY: No mediastinal or hilar adenopathy. Esophagus is unremarkable. No hiatal hernia. UPPER ABDOMEN: No acute pathology. BONES: No suspicious lytic or blastic abnormality. Previously noted interstitial infiltrate right lower lobe has resolved. CT/Chest WITH Contrast IMPRESSION: Negative contrast enhanced CT of the chest. Status post clearing of previously noted right lower lobe infiltrate Electronically Signed: Tushar Mitchell MD at 22:40 EST ,
[2022-09-09 15:21] LABS: CREATININE FINGERSTICK < 0.9 mg/dL (0.55-1.02); EGFR FINGERSTICK > 60.0000 mL/min (>60)
== END | disposition home or self-care (01) ==
LOC: CT 14:27
PROVIDERS: PCP Internal Medicine; Referring Provider Internal Medicine; Visit Provider Internal Medicine
DX: R91.8 Other nonspecific abnormal finding of lung field (principal)
CPT/HCPCS: 71260; Q9967

== ENCOUNTER → 2022-09-22 | Outpatient (CLI) | payer OTHER, SELFPAY ==
--- NOTE | 2022-09-22 07:28 | BI_ITS ---
MAMMOGRAPHY - BILATERAL SCREENING REASON FOR EXAM: Female, 62 years old. Routine annual screening examination. PERTINENT HISTORY: Grandmother with breast cancer. TECHNIQUE: Digital bilateral breast ambar (3D mammographic acquisition) in the CC and MLO projections. 2-D mediolateral oblique (MLO) and craniocaudad (CC) views of both breasts were obtained. CAD: Full Field Digital Mammography with Computer Added Detection was performed. COMPARISON: Comparison is made with prior study dated 07/15/2021 and 06/19/2020. FINDINGS: Breast Composition: There are scattered areas of fibroglandular density. There are no dominant masses or suspicious calcifications. Stable small benign-appearing bilateral axillary lymph nodes. No other significant abnormalities are identified. There has been no significant change since the prior study. BI/SCRN MAMM (CAD)W/AMBAR BILAT IMPRESSION: Stable bilateral screening mammogram. Yearly follow-up mammogram recommended. (A) ASSESSMENT CATEGORY: BIRADS Category 2: Benign. A letter regarding these results will be sent to the patient by the facility within 30 days. Approximately 10% of breast cancers are not detected by mammography. A normal mammogram should not delay biopsy of a clinically suspicious abnormality. [id number] Electronically Signed: Brayan Anthony MD at 8:50 EST ,
== END | disposition home or self-care (01) ==
LOC: OPBI 07:27
PROVIDERS: PCP Internal Medicine; Referring Provider Internal Medicine; Visit Provider Internal Medicine
DX: Z12.31 Encounter for screening mammogram for malignant neoplasm of breast (principal)
CPT/HCPCS: 77063; 77067

== ENCOUNTER 2022-11-29 06:11 | Day surgery (SDC) | payer OTHER, SELFPAY ==
--- NOTE | 2022-11-29 | COLBX_PTH ---
PATIENT: RYAN PINEDA LOC: EN U#:[id number] AGE/SX: 62/F ROOM: RE11/29/[address]: Dr. Adriel Maria DO : 1960 BED: DIS: 11/29/2022 SPEC #: [id number] RECD: 11/29/22 12:58 STATUS: SEGUN REBertin #: [id number] GIO: 11/29/22 00:[address]: Adriel Maria DEPT: SURGICAL PATHOLOGY RECD BY: John Kirby ENTERED: 11/29/22 12:58 SP TYPE: COLON BX OTHR DR: Dr. Anisha Puga DO Tissues: A - Cecum, NOS B - Rectum, NOS Procedures: Surgery Specimen Level IV HEADER OPERATION: Colonoscopy ? open access (MAC), polypectomy PRE-OP DIAGNOSIS: Screening TISSUE SUBMITTED: A ? Cecum polyp, B ? Rectum polyp MICROSCOPIC DIAGNOSIS A. Cecum polyp, polypectomy: Fragments of tubular adenoma with focal high-grade dysplasia. See comment. B. Rectum polyp, polypectomy: Fragments of tubular adenoma. THIAGO:shayy 11/30/2022 COMMENT A. The high-grade dysplasia is noted at the luminal surface of the polyp. Correlation with clinical, endoscopic findings and appropriate follow up are necessary. MICROSCOPIC DESCRIPTION Slides are reviewed. GROSS DESCRIPTION A - Received in fixative is one container labeled with the patient's name and designated cecum polyp. The specimen consists of multiple irregular fragments of light del castillo soft tissue that in aggregate measure 2.5 x 2.0 x 0.2 cm. The specimen is totally submitted in one cassette. B - Received in fixative is one container labeled with the patient's name and designated rectum polyp. The specimen consists of multiple irregular fragments of light del castillo soft tissue that in aggregate measure 0.9 x 0.6 x 0.2 cm. The specimen is totally submitted in one cassette. / THIAGO:shayy 11/29/2022 TC:1 [facility]: [id number] x2
[2022-11-29 06:48] VITALS: BP 126/71; PULSE 84; RESP 16; TEMP 36.6; O2SAT 99; BMI 31.6
[2022-11-29] MEDS: Lactated Ringers 1,000 ML 15 ML IV (06:56)
--- NOTE | 2022-11-29 07:31 | PCM.HP.STD ---
[facility] - General General Date of Admission: 11/29/22 Date of Service: 11/29/22 Chief Complaint: Surveillance colonoscopy HPI Narrative RYAN PINEDA, is a 62 F who presents today for a surveillance colonoscopy. She has a history of adenomatous polyps. Her last colonoscopy back in 2018 where she had no polyps. She did have a colonoscopy 2017 where she did have adenomatous polyps. She is doing well without any complaints this time. She denies abdominal pain. She denies any cramping. She denies any bleeding per rectum. [facility] Medical History (Updated 11/23/22 @ 10:25 by Kathy Carrasquillo) Asthma Back pain Diabetes Endometriosis Fatty liver Fibrocystic changes of left breast (~11/14/18) Former smoker Gastric reflux High cholesterol Non-smoker Post-menopausal Wears glasses Home Medications albuterol sulfate 90 mcg/actuation aerosol inhaler (Proventil HFA) 2 puff inhalation Q6H PRN Shortness Of Breath 11/08/18 [History Last Taken Unknown] cholecalciferol (vitamin D3) 125 mcg (5,000 unit) capsule 5,000 unit PO DAILY 11/08/18 [History Last Taken Unknown] fexofenadine 180 mg tablet (Criselda Allergy) 180 mg PO DAILY 11/08/18 [History Last Taken Unknown] magnesium 250 mg tablet 250 mg PO DAILY 11/08/18 [History Last Taken Unknown] potassium 99 mg tablet 2.5 meq PO DAILY 11/08/18 [History Last Taken Unknown] rosuvastatin 5 mg tablet 5 mg PO DAILY 10/08/21 [History Last Taken Unknown] fluticasone propionate 220 mcg/actuation HFA aerosol inhaler (Flovent HFA) 1 puff inhalation BID 09/23/22 [History Last Taken Unknown] fluticasone propionate 50 mcg/actuation nasal spray,suspension 2 spray intranasal DAILY 09/23/22 [History Last Taken Unknown] tirzepatide 7.5 mg/0.5 mL subcutaneous pen injector (Mounjaro) 7.5 mg subcut QWEEK 09/23/22 [History Last Taken Unknown] vitamin A palmitate 3,000 mcg (10,000 unit) capsule 3,000 mcg PO DAILY 09/23/22 [History Last Taken Unknown] Allergy/AdvReac Type Severity Reaction Status Date / Time aspirin Allergy Severe Shortness Verified 11/23/22 10:17 of breath,SEVERE guaifenesin [From Mucinex] Allergy Mild Shortness Verified 11/23/22 10:17 of breath ibuprofen Allergy Mild Angioedema Verified 11/23/22 10:17 Sulfa (Sulfonamide Allergy Mild Rash Verified 11/23/22 10:17 Antibiotics) Family History Father Cancer Mother Diabetes Thyroid disorder Surgical History History of breast biopsy (~11/14/18) History of mandibular surgery Hx of colonoscopy S/P hysterectomy S/P nasal polypectomy Status post laparoscopic cholecystectomy Social History Smoking Status: Never smoker alcohol intake: never ROS Review of Systems ROS Unobtainable: other Constitutional Constitutional: Denies fatigue, fever(s), poor appetite, weight gain or weight loss ENT HEENT: Denies mouth lesions Cardiovascular Cardiovascular: Denies abdominal bloating, abdominal edema or abdominal pain Respiratory/Chest Respiratory/Chest: Denies change in mental status, change in phlegm color, chest congestion or chest tightness Gastrointestinal Gastrointestinal: Denies belching, bloating, change in bowel habits, change in stool character, chewing difficulty, coffee ground emesis, constipation, cramping, diarrhea, dyspepsia, dysphagia, early satiety, excessive flatus, fecal incontinence, heartburn, hematemesis, hematochezia, hemorrhoids, loose stools, melena, nausea, odynophagia, rectal bleeding, tenesmus, vomiting or weight changes Genitourinary Genitourinary: Denies abdominal discomfort, burning urination or itching Musculoskeletal Musculoskeletal: Reports as per HPI; Denies muscle weakness or myalgias Integumentary Integumentary: Denies jaundice Neurologic Neurologic: Denies lack of coordination or weakness Psychiatric Psychiatric: Denies confusion, depression, memory loss, mood swings, paranoia or suicidal ideation Endocrine Endocrinology: Denies systems reviewed and no addt'l complaints, except as documented Hematologic/Lymphatic Hematologic/Lymphatic: Denies anemia, easy bleeding, easy bruising or lymphadenopathy Allergic/Immunologic Allergic/Immunologic: Denies systems reviewed and no addt'l complaints, except as documented Vital Signs Vital Signs Vital Signs: 11/29/22 06:48 11/29/22 06:48 Temperature 97.9 F Temperature Source Temporal Pulse Rate 84 Respiratory Rate 16 Respiratory Pattern Normal Blood Pressure 126/71 H Blood Pressure Mean 89 Blood Pressure Source Monitor Blood Pressure Position Semi-Fowlers Blood Pressure Location Left Arm Pulse Ox 99 Oxygen Delivery Method Room Air Weight Weight: 178 lb 9.191 oz Body Mass Index (BMI) 31.6 Physical Exam Const alert General Appearance: cooperative Orientation / Consciousness: oriented to person HEENT hearing grossly normal bilaterally Head and Scalp: normal to inspection Face and Sinus: face symmetric Nose: external nose normal Mouth: oral and palatal mucosa normal Eyes conjunctivae normal General Eye: normal appearance of both eyes Neck full ROM General: normal visual inspection Lymph Lymphatic: no lymphadenopathy noted Chest inspection of chest normal and palpation of chest normal Chest: symmetrical chest wall rise Resp normal respiratory effort Effort and Inspection: able to speak in complete sentences Cardio regular rate GI non-distended Percussion: normal to percussion Rectal Exam: deferred Neuro Speech: speech normal Gait (Neuro): normal gait Assessment & Plan Assessment/Plan (1) Encounter for screening for malignant neoplasm of colon: PLAN: She was explained alternatives, risk, benefits include not withstanding bleeding, infection, sepsis, perforation, need for emergent surgery . She have an ASA of 1.
[2022-11-29 07:51] LABS: Bedside Glucose 102 mg/dL (74-106)
[2022-11-29 08:00] VITALS: BP 126/71; BP 95/48; PULSE 76; RESP 16; TEMP 36.5; O2SAT 97
--- NOTE | 2022-11-29 08:01 | OP.COLON_ITS ---
Patient Name: Lisa Bardales Procedure Date: 11/29/2022 7:38 AM Date of : 1960 Age: 62 Procedure: Colonoscopy Indications: High risk colon cancer surveillance: Personal history of colonic polyps Providers: Adriel Maria DO Medicines: Monitored Anesthesia Care Patient Profile: This is a 62 year old female. Refer to note in patient chart for documentation of history and physical. Last Colonoscopy: 5 years ago. Complications: No immediate complications. Procedure: Pre-Anesthesia Assessment: - Prior to the procedure, a History and Physical was performed, and patient medications and allergies were reviewed. The risks and benefits of the procedure and the sedation options and risks were discussed with the patient. All questions were answered and informed consent was obtained. Patient identification and proposed procedure were verified by the physician in the pre-procedure area. Mental Status Examination: alert and oriented. Airway Examination: normal oropharyngeal airway and neck mobility. Respiratory Examination: clear to auscultation. CV Examination: normal. Prophylactic Antibiotics: The patient does not require prophylactic antibiotics. Prior Anticoagulants: The patient has taken no previous anticoagulant or antiplatelet agents. ASA Grade Assessment: II - A patient with mild systemic disease. After reviewing the risks and benefits, the patient was deemed in satisfactory condition to undergo the procedure. The anesthesia plan was to use monitored anesthesia care (MAC). Immediately prior to administration of medications, the patient was re-assessed for adequacy to receive sedatives. The heart rate, respiratory rate, oxygen saturations, blood pressure, adequacy of pulmonary ventilation, and response to care were monitored throughout the procedure. The physical status of the patient was re-assessed after the procedure. After I obtained informed consent, the scope was passed under direct vision. Throughout the procedure, the patient's blood pressure, pulse, and oxygen saturations were monitored continuously. The Colonoscope was introduced through the anus and advanced to the cecum, identified by appendiceal orifice and ileocecal valve. The colonoscopy was performed without difficulty. The patient tolerated the procedure well. The quality of the bowel preparation was adequate. Scope In: 7:42:14 AM Scope Withdrawal Time 0 hours 9 minutes 48 seconds Scope Out: 7:54:59 AM Total Procedure Duration Time 0 hours 12 minutes 45 seconds Findings: The perianal and digital rectal examinations were normal. Many small and large-mouthed diverticula were found in the recto-sigmoid colon and sigmoid colon. Two sessile polyps were found in the rectum and cecum. The polyps were 1 to 2 mm in size. These polyps were removed with a hot snare. Resection and retrieval were complete. Verification of patient identification for the specimen was done. Estimated blood loss was minimal. Impression: - Diverticulosis in the recto-sigmoid colon and in the sigmoid colon. - Two 1 to 2 mm polyps in the rectum and in the cecum, removed with a hot snare. Resected and retrieved. Recommendation: - Repeat colonoscopy in 3 years for surveillance. - Continue present medications. Procedure Code(s): --- Professional --- 12068, Colonoscopy, flexible; with removal of tumor(s), polyp(s), or other lesion(s) by snare technique CPT copyright 2017 [employer]. All rights reserved. The codes documented in this report are preliminary and upon laser technician review may be revised to meet current compliance requirements. Adriel Maria DO 11/29/2022 8:01:15 AM This report has been signed electronically. Number of Addenda: 0 Note Initiated On: 11/29/2022 7:38 AM
--- NOTE | 2022-11-29 08:01 | OP.CCLET_ITS ---
11/29/2022 Anisha Puga Re : Colonoscopy procedure for Lisa Bardales Dear Edd This procedure was performed on Tuesday, November 29, 2022. My impressions and recommendations are as follows: Impressions : - Diverticulosis in the recto-sigmoid colon and in the sigmoid colon. - Two 1 to 2 mm polyps in the rectum and in the cecum, removed with a hot snare. Resected and retrieved. Recommendations : - Repeat colonoscopy in 3 years for surveillance. - Continue present medications. My findings are described in the full procedure note, which is enclosed. If I can be of further assistance, please feel free to contact me at . Sincerely, Adriel Maria, 11/29/2022 8:01:15 AM This report has been signed electronically.
[2022-11-29 08:05] VITALS: BP 126/71; BP 94/64; PULSE 73; RESP 16; O2SAT 96
[2022-11-29 08:10] VITALS: BP 112/70; BP 126/71; PULSE 80; RESP 16; O2SAT 99
[2022-11-29 08:15] VITALS: BP 105/66; BP 126/71; PULSE 66; RESP 17; TEMP 36.4; O2SAT 99
[2022-11-29 08:25] VITALS: BP 126/71
== END 2022-11-29 08:45 | disposition home or self-care (01) ==
LOC: EN 06:20 → AC 06:29
PROVIDERS: PCP Internal Medicine; Referring Provider Internal Medicine; Visit Provider Internal Medicine Gastroenterology
PROC: 0DJD8ZZ Inspection of Lower Intestinal Tract, Via Natural or Artificial Opening Endoscopic (ICD-10-PCS; CPT 45378; principal; 2022-11-29 07:25)
DX: Z12.11 Encounter for screening for malignant neoplasm of colon (principal); E11.9 Type 2 diabetes mellitus without complications; D12.0 Benign neoplasm of cecum; D12.8 Benign neoplasm of rectum; K57.30 Diverticulosis of large intestine without perforation or abscess without bleeding; E78.00 Pure hypercholesterolemia, unspecified; Z90.49 Acquired absence of other specified parts of digestive tract; Z79.85 Long-term (current) use of injectable non-insulin antidiabetic drugs; Z79.899 Other long term (current) drug therapy; Z86.010 Personal history of colon polyps; Z86.16 Personal history of COVID-19
CPT/HCPCS: 45385; 82962; 88305; J7120; J2405

== ENCOUNTER → 2023-02-16 | Outpatient (CLI) | payer OTHER, SELFPAY ==
--- NOTE | 2023-02-16 16:21 | RAD_ITS ---
INDICATION: foot pain, attn arch, left foot, r/o stress fracture -- attn arch, left foot, r/o stress fracture EXAMINATION/TECHNIQUE: X-RAY - LEFT XR Foot Min 3 Views 3 VIEWS COMPARISON: FINDINGS: SOFT TISSUES: No soft tissue swelling or gas. No radiopaque foreign body. BONES/JOINTS: No acute fracture or subluxation.. Normal alignment. Preservation of the joint space.. No sclerotic or destructive changes observed. RAD/Foot min 3 Views IMPRESSION: Negative. Electronically Signed: Shawn Rascon, at 17:31 EDT ,
--- NOTE | 2023-02-16 16:21 | RAD_ITS ---
INDICATION: left shoulder pain, L shoulder complete -- left shoulder pain, L shoulder complete EXAMINATION/TECHNIQUE: X-RAY - LEFT XR Shoulder Min 2 Views 4 VIEWS COMPARISON: FINDINGS: SOFT TISSUES: No soft tissue swelling or gas. No radiopaque foreign body. BONES/JOINTS: No acute fracture or subluxation.. Normal alignment. Preservation of the joint space.. No sclerotic or destructive changes observed. RAD/Shoulder min 2 Views IMPRESSION: Negative. Electronically Signed: Shawn Rascon, at 17:34 EDT ,
== END | disposition home or self-care (01) ==
LOC: MTRAD 16:19
PROVIDERS: PCP Internal Medicine; Referring Provider Internal Medicine; Visit Provider Internal Medicine
DX: M25.512 Pain in left shoulder (principal); M79.672 Pain in left foot
CPT/HCPCS: 73030; 73630

== ENCOUNTER → 2023-07-11 | Outpatient (CLI) | payer OTHER, SELFPAY ==
--- NOTE | 2023-07-11 16:21 | MRI_ITS ---
INDICATION: trigeminal neuralgia EXAMINATION: MRI - MR Brain WO/W Contrast TECHNIQUE: MRI examination of brain obtained with standard protocol including multiplanar multiecho imaging. Pre and Postcontrast imaging obtained. IV Contrast Dosage and Agent: 13 mL clariscan COMPARISON: : No relevant prior comparison study available FINDINGS: HEMISPHERES, CEREBELLUM AND BRAINSTEM: 1. The cerebral parenchyma, ventricular system, subarachnoid spaces have normal configuration and density. There is a normal gyral pattern. There is normal minor/white differentiation. No midline shift.. 2. There are mild involutional changes and mild chronic microvascular deep white matter changes. 3. No intraparenchymal mass, hemorrhage, or acute territorial infarct. 4. The cerebellum, brainstem, basilar and suprasellar cisterns have normal appearance. No Chiari malformation. 5. No areas of abnormal contrast enhancement. 6. There is normal appearance the visualized face cranial nerves bilaterally without masses or abnormal enhancement. Normal symmetric appearance of the cavernous sinus bilaterally. PITUITARY: Infundibulum and pituitary have normal configuration. Midline structures appear normal. CSF SPACES: Appropriate for age. No hydrocephalus. Basal cisterns are patent. VESSELS: 1. There are normal flow voids noted in the great vessels at the skull base 2. No filling defects noted within the visualized dural sinuses. ORBITS AND PARANASAL SINUSES: 1. Both globes, extraocular muscles, optic nerves and retrobulbar fat appear unremarkable. 2. Extensive ethmoid sinus disease at, mild to moderate maxillary sinus disease, and RIGHT frontal disease is noted. BONY ELEMENTS: Bony elements of the cranial vault, facial skeleton and skull base have normal appearance. SCALP AND SOFT TISSUES: Normal appearance of the soft tissues of the scalp and the visualized face OTHER: None MRI/Brain W/WO Contrast IMPRESSION: 1. Mild involutional changes, mild chronic microvascular deep white matter disease. 2. No intraparenchymal mass, hemorrhage, or acute territorial infarct. No areas of abnormal contrast enhancement. 3. Normal appearance of the cisternal course of the trigeminal nerves bilaterally, normal symmetric appearance of the cavernous sinuses. 4. Extensive chronic appearing sinus disease. Electronically Signed: Eyad Herrera MD at 22:36 EST ,
[2023-07-11 17:02] LABS: CREATININE FINGERSTICK < 0.9 mg/dL (0.55-1.02); EGFR FINGERSTICK > 60.0000 mL/min (>60)
== END | disposition home or self-care (01) ==
LOC: MRI 16:13
PROVIDERS: PCP Internal Medicine; Visit Provider Internal Medicine
DX: G50.0 Trigeminal neuralgia (principal)
CPT/HCPCS: 70553; A9575

== ENCOUNTER 2023-07-13 18:00 | Outpatient (RCR) | payer OTHER, SELFPAY ==
--- NOTE | 2023-06-15 17:58 | HP.PTEVAL ---
Patient's Visit Information Visit Information Visit Information: RYAN PINEDA is a 63 year old F referred to Physical Therapy by Dr. Anisha Puga DO with a diagnosis of L shoulder pain. Date of Evaluation: 06/15/23 Physical Therapist: QUYEN Lu Visit Plan Frequency: 2x /Week Duration: 2 Months Plan: 2X/ week for 8 weeks for L shoulder and scapular strength, postural exercises, possible US to the L anterior shoulder under the acromion with HEP HEP: orange mid rows and double ER with scapular retraction Subjective Subjective: She has had shoulder pain for a long time and not going away and she wants to start strengthening and does not want to mess it up. It is her R shoulder and she is L handed. It just started to hurt and noticing it at night and sleeps with her L hand up under the pillow. It is stiff and achy after she sleeps like that. 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 She sits all day too. It is hard to tell if her pain is deep or superficial. She is just dx with trigeminal neuralgia. It is occasional pain. She does not want to take the medication. She has an MRI schedule. She has no N&T in the arm. She has no catching in the arm. She points to her lateral arm for the pain and sometimes her L elbow hurts. Behind her back is also painful. She is on a computer all day at work and she has her computer set up a little higher. She retires in Aug. 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# C-spine AROM: flexion 100%, Ext 75%, Rot B 75%, SB B 75% UE AROM: R shoulder flex 165 and L 145 R shoulder ABD 175 and L 146 R shoulder IR T8 and L L1 R shoulder ER 76 and L 59 UE MMT: R shoulder flex 7.4 and L 5.5 R shoulder ABD 6.3 and L 4.8 R shoulder ER 5.9 and L 5.7 R shoulder IR 5.6 and L 7.8 + HK test and Yeargusen test on the L Palpation: tender under the L acromion Balance/Special Test Scores Quick DASH Score: 27.5000 Goals Goal 1:: I HEP Goal Time Frame: 6-8 Weeks Goal 2:: Increase L shoulder AROM (at the time of the eval: R shoulder flex 165 and L 145 R shoulder ABD 175 and L 146 R shoulder IR T8 and L L1 R shoulder ER 76 and L 59). Goal Time Frame: 6-8 Weeks Goal 3:: Increase L shoulder strength (at the time of the eval: R shoulder flex 7.4 and L 5.5 R shoulder ABD 6.3 and L 4.8 R shoulder ER 5.9 and L 5.7 R shoulder IR 5.6 and L 7.8) Goal Time Frame: 6-8 Weeks Goal 4:: Be able to move her L arm with ADL's with decrease in pain by 50% Goal Time Frame: 6-8 Weeks Rehabilitation Potential Rehabilitation Potential: Good Anticipated Interventions Patient/Client Instruction: Educate patient on: Condition and Plan of Care For the Purpose of:: To decrease pain, To decrease swelling/inflammation, To increase ROM, To improve nutrient delivery to tissue, To improve muscle performance and motor function, To improve ability to perform ADL's, To increase tolerance to activity/condition/position, To improve performance and independence with ADL's, To decrease level of supervision to perform tasks and To improve health of tissue Therapeutic Exercise to Include: Strength training, Postural training, Passive ROM, Active ROM and Scapular Strength/Stabilization For the Purpose of:: To decrease pain, To increase ROM, To improve nutrient delivery to tissue, To improve muscle performance and motor function, To improve ability to perform ADL's, To increase tolerance to activity/condition/position, To improve performance and independence with ADL's, To decrease level of supervision to perform tasks, To improve ability of physical actions for home/community/work/leisure, To improve health of tissue and To decrease soft tissue restriction Manual Therapy Techniques to Include: Mobilization, Passive ROM and Soft tissue mobilization For the Purpose of:: To decrease pain, To decrease swelling/inflammation, To increase ROM, To improve nutrient delivery to tissue, To increase oxygenation perfusion, To improve muscle performance and motor function, To improve ability to perform ADL's and To improve performance and independence with ADL's Cryotherapy (ice pack, ice massage): Yes Thermo therapy (hot pack): Yes Ultrasound (thermal/non thermal): Yes For the Purpose of:: To decrease pain, To decrease swelling/inflammation and To improve nutrient delivery to tissue Text: Thank you for the opportunity to evaluate your patient. For Medicare and Medicare HMO plans, please review the plan of care and approve it. It will need to be FAXED BACK to us at [phone] for Medicare purposes. For Medicare only, by signing this I certify the plan of care. Please let me know if there are questions or concerns regarding this plan of care. Physician Signature: Date:
--- NOTE | 2023-07-13 18:57 | HP.PTDCSUM ---
Discharge Summary D/C summary: It has been my pleasure to treat RYAN PINEDA referred by Dr. Anisha Puga DO, with the diagnosis of L shoulder pain for a total of 7 visit(s). Discharge Date: 07/13/23 Please see the following information for a summary of their discharge status. Subjective Subjective: MRI was good. Pt feels that her cheek numbness is from her C-spine DDD that comes and goes...and her posture helps that a lot. She does feel stronger Pain L shoulder pain: Pain Intensity (Out of 10): 0 Overall Improvement % Improvement: 40 Objective Objective/Function: shoulder flex L 150 shoulder ABD L 165 shoulder IR L T8 shoulder L 62 shoulder flex L 9.3 shoulder L 10 shoulder ER L 9.3 L shoulder L 11.4 Goals Goal 1:: I HEP Goal Progress: Goal Met Goal 2:: Increase L shoulder AROM (at the time of the eval: R shoulder flex 165 and L 145 R shoulder ABD 175 and L 146 R shoulder IR T8 and L L1 R shoulder ER 76 and L 59). Goal Progress: Goal Met Goal 3:: Increase L shoulder strength (at the time of the eval: R shoulder flex 7.4 and L 5.5 R shoulder ABD 6.3 and L 4.8 R shoulder ER 5.9 and L 5.7 R shoulder IR 5.6 and L 7.8) Goal Progress: Goal Met Goal 4:: Be able to move her L arm with ADL's with decrease in pain by 50% Goal Progress: Progressing Plan Plan: DC PT to HEP D/C Information Discharge Comments: DC PT to HEP d/c sentence: If there are questions or concerns regarding this patient's physical therapy, please feel free to call me at [phone]. Thank you for the referral of this patient. Sincerely, Cathy Cardona, MPT Balance/Gait/Functional tests Balance/Special Test Scores Quick DASH Score: 6.8175 Improvement % Improvement: 40
--- NOTE | 2023-07-13 19:04 | HP.PTREVAL ---
Re-Evaluation Intro: Dr. Anisha Puga, DO, It has been my pleasure to treat RYAN PINEDA over the last 7 visits for L shoulder pain. Please see the progress note below for an update on the physical therapy plan of care! Subjective Subjective: MRI was good. Pt feels that her cheek numbness is from her C-spine DDD that comes and goes...and her posture helps that a lot. She does feel stronger Objective Objective/Function: shoulder flex L 150 shoulder ABD L 165 shoulder IR L T8 shoulder L 62 shoulder flex L 9.3 shoulder L 10 shoulder ER L 9.3 L shoulder L 11.4 Plan Plan Plan: DC PT to HEP Balance/Gait/Functional tests Balance/Special Test Scores Quick DASH Score: 6.8175 Goals Goals Goal 1:: I HEP Goal Time Frame: 6-8 Weeks Goal Progress: Goal Met Goal 2:: Increase L shoulder AROM (at the time of the eval: R shoulder flex 165 and L 145 R shoulder ABD 175 and L 146 R shoulder IR T8 and L L1 R shoulder ER 76 and L 59). Goal Time Frame: 6-8 Weeks Goal Progress: Goal Met Goal 3:: Increase L shoulder strength (at the time of the eval: R shoulder flex 7.4 and L 5.5 R shoulder ABD 6.3 and L 4.8 R shoulder ER 5.9 and L 5.7 R shoulder IR 5.6 and L 7.8) Goal Time Frame: 6-8 Weeks Goal Progress: Goal Met Goal 4:: Be able to move her L arm with ADL's with decrease in pain by 50% Goal Time Frame: 6-8 Weeks Goal Progress: Progressing Anticipated Interventions Anticipated Interventions Patient/Client Instruction: Educate patient on: Condition and Plan of Care For the Purpose of:: To decrease pain, To decrease swelling/inflammation, To increase ROM, To improve nutrient delivery to tissue, To improve muscle performance and motor function, To improve ability to perform ADL's, To increase tolerance to activity/condition/position, To improve performance and independence with ADL's, To decrease level of supervision to perform tasks and To improve health of tissue Therapeutic Exercise to Include: Strength training, Postural training, Passive ROM, Active ROM and Scapular Strength/Stabilization For the Purpose of:: To decrease pain, To increase ROM, To improve nutrient delivery to tissue, To improve muscle performance and motor function, To improve ability to perform ADL's, To increase tolerance to activity/condition/position, To improve performance and independence with ADL's, To decrease level of supervision to perform tasks, To improve ability of physical actions for home/community/work/leisure, To improve health of tissue and To decrease soft tissue restriction Manual Therapy Techniques to Include: Mobilization, Passive ROM and Soft tissue mobilization For the Purpose of:: To decrease pain, To decrease swelling/inflammation, To increase ROM, To improve nutrient delivery to tissue, To increase oxygenation perfusion, To improve muscle performance and motor function, To improve ability to perform ADL's and To improve performance and independence with ADL's Cryotherapy (ice pack, ice massage): Yes Thermo therapy (hot pack): Yes Ultrasound (thermal/non thermal): Yes For the Purpose of:: To decrease pain, To decrease swelling/inflammation and To improve nutrient delivery to tissue Re-Evaluation Ending Re-evaluation ending: Please do not hesitate to contact me at [phone] by phone or if you have questions or concerns regarding this new plan of care! Sincerely, Cathy Cardona, MPT
--- NOTE | 2023-07-13 19:12 | HP.PTEVAL_ITS ---
Patient's Visit Information Visit Information Visit Information: RYAN PINEDA is a 63 year old F referred to Physical Therapy by Dr. Anisha Puga DO with a diagnosis of L shoulder pain. Date of Evaluation: 06/15/23 Physical Therapist: QUYEN Lu Visit Plan Frequency: 2x /Week Duration: 2 Months Plan: DC PT to HEP Subjective Subjective: She has had shoulder pain for a long time and not going away and she wants to start strengthening and does not want to mess it up. It is her R shoulder and she is L handed. It just started to hurt and noticing it at night and sleeps with her L hand up under the pillow. It is stiff and achy after she sleeps like that. 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 She sits all day too. It is hard to tell if her pain is deep or superficial. She is just dx with trigeminal neuralgia. It is occasional pain. She does not want to take the medication. She has an MRI schedule. She has no N&T in the arm. She has no catching in the arm. She points to her lateral arm for the pain and sometimes her L elbow hurts. Behind her back is also painful. She is on a computer all day at work and she has her computer set up a little higher. She retires in Aug. 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 AROM: flexion 100%, Ext 75%, Rot B 75%, SB B 75% UE AROM: R shoulder flex 165 and L 145 R shoulder ABD 175 and L 146 R shoulder IR T8 and L L1 R shoulder ER 76 and L 59 UE MMT: R shoulder flex 7.4 and L 5.5 R shoulder ABD 6.3 and L 4.8 R shoulder ER 5.9 and L 5.7 R shoulder IR 5.6 and L 7.8 + HK test and Yeargusen test on the L Palpation: tender under the L acromion Balance/Special Test Scores Quick DASH Score: 6.8175 Goals Goal 1:: I HEP Goal Time Frame: 6-8 Weeks Goal 2:: Increase L shoulder AROM (at the time of the eval: R shoulder flex 165 and L 145 R shoulder ABD 175 and L 146 R shoulder IR T8 and L L1 R shoulder ER 76 and L 59). Goal Time Frame: 6-8 Weeks Goal 3:: Increase L shoulder strength (at the time of the eval: R shoulder flex 7.4 and L 5.5 R shoulder ABD 6.3 and L 4.8 R shoulder ER 5.9 and L 5.7 R shoulder IR 5.6 and L 7.8) Goal Time Frame: 6-8 Weeks Goal 4:: Be able to move her L arm with ADL's with decrease in pain by 50% Goal Time Frame: 6-8 Weeks Rehabilitation Potential Rehabilitation Potential: Good Anticipated Interventions Patient/Client Instruction: Educate patient on: Condition and Plan of Care For the Purpose of:: To decrease pain, To decrease swelling/inflammation, To increase ROM, To improve nutrient delivery to tissue, To improve muscle performance and motor function, To improve ability to perform ADL's, To increase tolerance to activity/condition/position, To improve performance and independence with ADL's, To decrease level of supervision to perform tasks and To improve health of tissue Therapeutic Exercise to Include: Strength training, Postural training, Passive ROM, Active ROM and Scapular Strength/Stabilization For the Purpose of:: To decrease pain, To increase ROM, To improve nutrient delivery to tissue, To improve muscle performance and motor function, To improve ability to perform ADL's, To increase tolerance to activity/condition/position, To improve performance and independence with ADL's, To decrease level of supervision to perform tasks, To improve ability of physical actions for home/community/work/leisure, To improve health of tissue and To decrease soft tissue restriction Manual Therapy Techniques to Include: Mobilization, Passive ROM and Soft tissue mobilization For the Purpose of:: To decrease pain, To decrease swelling/inflammation, To increase ROM, To improve nutrient delivery to tissue, To increase oxygenation perfusion, To improve muscle performance and motor function, To improve ability to perform ADL's and To improve performance and independence with ADL's Cryotherapy (ice pack, ice massage): Yes Thermo therapy (hot pack): Yes Ultrasound (thermal/non thermal): Yes For the Purpose of:: To decrease pain, To decrease swelling/inflammation and To improve nutrient delivery to tissue Text: Thank you for the opportunity to evaluate your patient. For Medicare and Medicare HMO plans, please review the plan of care and approve it. It will need to be FAXED BACK to us at [phone] for Medicare purposes. For Medicare only, by signing this I certify the plan of care. Please let me know if there are questions or concerns regarding this plan of care. Physician Signature: Date:
== END 2023-07-13 19:00 | disposition home or self-care (01) ==
LOC: PT 18:00
PROVIDERS: PCP Internal Medicine; Visit Provider Internal Medicine
DX: M25.512 Pain in left shoulder (principal)
CPT/HCPCS: 97110; 97161; 97530

== ENCOUNTER → 2023-07-19 | Outpatient (CLI) | payer OTHER, SELFPAY ==
--- NOTE | 2023-07-19 08:30 | BD_ITS ---
STUDY: DUAL ENERGY X-RAY ABSORPTIOMETRY / DXA REASON FOR EXAM: Female, 63 years old. [id number] TECHNIQUE: Bone Mineral Density (BMD) measurements of lumbar spine and bilateral hips were obtained. COMPARISON: Comparison is made with prior study dated July 15, 2021. FINDINGS: Lumbar Spine (L1-L4): g/cm2 (0.870) / T-score (-1.3) / Z-score (0.4) Findings are suggestive of osteopenia with a low fracture risk. Left Femur Total: g/cm2 (0.833) / T-score (-0.9) / Z-score (0.3) Left Femoral Neck: g/cm2 (0.632) / T-score (-2.0) / Z-score (-0.4) Right Femur Total: g/cm2 (0.826) / T-score (-0.9) / Z-score (0.3) Right Femoral Neck: g/cm2 (0.658) / T-score (-1.7) / Z-score (-0.2) The T-Scores on the most recent prior examination were: Lumbar Spine (L1-L4): There has been improvement of bone density since the previous examination. Left Femur Total: which represents a worsening of 6.8%. Right Femur Total: which represents a worsening of 1.7%. BD/Dexa Bone Density Study IMPRESSION: The patient is considered osteopenic as outlined below according to World Mack Organization (WHO) criteria with a moderate fracture risk. There has been worsening of bone density since the previous examination. Reference Information: The T-score is the number of standard deviations above or below the standard which is normal for young adults at their peak bone mineral density. The World Health Organization (WHO) interprets the T-scores as follows: Above -1 Normal bone density Between -1 and -2.5 Osteopenia Equal to / or below -2.5 Osteoporosis As a practical clinical guideline, osteopenia may be graded as follows: Mild -1 through -1.5 Moderate -1.6 through -2.0 Severe -2.1 through -2.4 The Z-score is the number of standard deviations above or below age-matched controls. A Z-score of less than -1.5 would be considered abnormal. References: 1. NIH Osteoporosis and Related Bone Diseases www osteo.org 2. International Society for Clinical Densitometry www iscd.org 3. National Osteoporosis Foundation www nof.org Electronically Signed: Brayan Anthony MD at 10:07 EST ,
== END | disposition home or self-care (01) ==
LOC: OPBD 08:24
PROVIDERS: PCP Internal Medicine; Visit Provider Internal Medicine
DX: Z78.0 Asymptomatic menopausal state (principal)
CPT/HCPCS: 77080

== ENCOUNTER → 2024-01-18 | Outpatient (CLI) | payer MEDICARE, OTHER, SELFPAY ==
--- NOTE | 2024-01-18 07:29 | BI_ITS ---
MAMMOGRAPHY - BILATERAL SCREENING REASON FOR EXAM: Female, 63 years old. Routine annual screening examination. PERTINENT HISTORY: Grandmother with breast cancer. History of prior left stereotactic breast biopsy. TECHNIQUE: Digital bilateral breast ambar (3D mammographic acquisition) in the CC and MLO projections. 2-D mediolateral oblique (MLO) and craniocaudad (CC) views of both breasts were obtained. CAD: Full Field Digital Mammography with Computer Added Detection was performed. COMPARISON: Comparison is made with prior study dated September 22, 2022 and July 15, 2021. FINDINGS: Breast Composition: There are scattered areas of fibroglandular density. There are no dominant masses or suspicious calcifications. A tissue clip marker is seen along the inferior slightly medial aspect of the left breast. A tiny nodule is seen at that site. Stable small benign-appearing bilateral axillary lymph nodes. No other significant abnormalities are identified. There has been no significant change since the prior study. BI/SCRN MAMM (CAD)W/AMBAR BILAT IMPRESSION: Stable bilateral screening mammogram. Yearly follow-up mammogram recommended. (A) ASSESSMENT CATEGORY: BIRADS Category 2: Benign. A letter regarding these results will be sent to the patient by the facility within 30 days. Approximately 10% of breast cancers are not detected by mammography. A normal mammogram should not delay biopsy of a clinically suspicious abnormality. [id number] Electronically Signed: Brayan Anthony MD at 10:48 EDT ,
--- NOTE | 2024-01-18 07:52 | US_ITS ---
INDICATION: fatty liver EXAMINATION: Ultrasound US Abdomen Limited (quadrant) TECHNIQUE: Morgan scale and color doppler imaging was performed of the right upper quadrant. COMPARISON: Report only from September 07, 2022. Attempted to obtain comparison other than the report sheet were unsuccessful. FINDINGS: LIVER: 14.1 cm Hepatopedal portal flow. There is normal echotexture. No focal hepatic lesion. There is no free fluid. GALLBLADDER AND BILIARY TREE: Surgically absent. Songraphic Flores''s sign: None PANCREAS: No focal abnormality is demonstrated in the pancreas. No pancreatic ductal dilatation. Pancreatic tail is obscured by bowel gas. RIGHT KIDNEY: 10.4 cm in length. No hydronephrosis. No shadowing nephrolithiasis. Normal cortical echogenicity without focal thinning or scarring. No evidence of cystic or solid mass. US/Abdomen Limited IMPRESSION: Normal sonographic appearance of the liver. Absent gallbladder. Common bile duct within normal limits postcholecystectomy. Limited pancreatic visualization degrades exam. Electronically Signed: Jcarlos Farley MD at 3:23 EDT ,
== END | disposition home or self-care (01) ==
LOC: OPBI 07:29
PROVIDERS: PCP Internal Medicine; Referring Provider Internal Medicine; Visit Provider Internal Medicine
DX: Z12.31 Encounter for screening mammogram for malignant neoplasm of breast (principal); K76.0 Fatty (change of) liver, not elsewhere classified
CPT/HCPCS: 76705; 77063; 77067

== ENCOUNTER → 2024-04-04 | Outpatient (CLI) | payer MEDICARE, OTHER, SELFPAY ==
--- NOTE | 2024-04-04 08:51 | NEURO ---
NCS and/or EMG Patient Report Ordering Doctor: Anisha Puga DATE OF SERVICE: 04/04/24 Lisa presents with pain in the right thumb and index finger. She reports of burning sensation that radiates up to the elbow. She reports an aching in the left arm. Electrodiagnostic findings: Right median motor nerve demonstrates normal distal latency, amplitude and conduction velocity. Left median motor nerve demonstrates normal distal latency, amplitude and conduction velocity. Ulnar motor response on the right side demonstrates a slightly greater than 20% drop in conduction across the elbow. Normal left ulnar motor response. Normal median and ulnar F?waves. Prolonged right median sensory latency at the wrist. Normal ulnar and radial sensory responses. Needle EMG testing was performed in the upper limbs. All muscles tested showed no evidence of denervation with normal motor unit action potentials. Electrodiagnostic impression: This is an abnormal study in the upper limbs. 1. Electrodiagnostic findings suggestive of right-sided median mononeuropathy. This is consistent with a mild right carpal tunnel syndrome 2. Electrodiagnostic findings suggestive of right-sided ulnar neuropathy, consistent with a mild right cubital tunnel syndrome. 3. There is no electrodiagnostic evidence for cervical radiculopathy. Multi Select Codes Neurology Neurology Interp Codes: 34383-46 Musc test done w/n test comp (interp) (2) and 82247-77 Nrv cndj test 9-10 studies (interp)
== END | disposition home or self-care (01) ==
LOC: PSN 06:59
PROVIDERS: PCP Internal Medicine; Referring Provider Internal Medicine; Visit Provider Internal Medicine
DX: R20.2 Paresthesia of skin (principal)
CPT/HCPCS: 95886; 95913

== ENCOUNTER 2024-04-25 05:50 | Day surgery (SDC) | payer MEDICARE, OTHER, SELFPAY ==
[2024-04-25] VITALS (8 sets, daily range): BP systolic 91–123; BP diastolic 58–84; PULSE 72–84; RESP 14–16; TEMP 36.7; O2SAT 98–100; BMI 27.6
--- NOTE | 2024-04-25 | COLBX_PTH ---
PATIENT: RYAN PINEDA LOC: EN U#:[id number] AGE/SX: 64/F ROOM: RE04/25/[address]: Dr. Adriel Maria DO : 1960 BED: DIS: 04/25/2024 SPEC #: [id number] RECD: 04/25/24 10:43 STATUS: SEGUN MINA #: [id number] GIO: 04/25/24 00:[address]: Adriel Maria DEPT: SURGICAL PATHOLOGY RECD BY: John Kirby ENTERED: 04/25/24 10:43 SP TYPE: COLON BX OTHR DR: Dr. Anisha Puga DO Tissues: Cecum, NOS Procedures: Surgery Specimen Level IV HEADER OPERATION: Colonoscopy with biopsy PRE-OP DIAGNOSIS: Screening TISSUE SUBMITTED: Cecal polyp MICROSCOPIC DIAGNOSIS Cecal polyp, biopsy: Fragments of tubular adenoma. THIAGO/ 04/26/2024 MICROSCOPIC DESCRIPTION Slides are reviewed. GROSS DESCRIPTION Received in fixative is one container labeled with the patient's name and designated Cecal polyp. The specimen consists of multiple irregular fragments of light del castillo soft tissue that in aggregate measure 1.0 x 0.3 x 0.1 cm. The specimen is totally submitted in one cassette. 04/25/2024 TC:1 CPT:39551
[2024-04-25] MEDS: Lactated Ringers 1,000 ML 15 ML IV (06:28)
--- NOTE | 2024-04-25 06:28 | PCM.HP.STD ---
[facility] - General General Date of Admission: 04/25/24 Date of Service: 04/25/24 Chief Complaint: Surveillance colonoscopy HPI Narrative RYAN PINEDA, is a 64 F who presentswho presents today for a surveillance colonoscopy. She has a history of adenomatous polyps. Prior to last year her last colonoscopy back in 2018 where she had no polyps. She did have a colonoscopy 2017 where she did have adenomatous polyps. She underwent colonoscopy last year and was discovered to have tubular adenoma with high-grade dysplasia. She comes back today for surveillance colonoscopy. She is doing well without any complaints this time. She denies abdominal pain. She denies any cramping. She denies any bleeding per rectum. [facility] Medical History Fatty liver Non-smoker Wears glasses Post-menopausal High cholesterol Back pain Gastric reflux Former smoker Asthma Fibrocystic changes of left breast (~11/14/18) Endometriosis Diabetes Home Medications ?Medication ?Instructions ?Recorded ?Last Taken ?Type albuterol sulfate 90 mcg/actuation 2 puff inhalation Q6H PRN 11/08/18 Unknown History aerosol inhaler (Proventil HFA) Shortness Of Breath cholecalciferol (vitamin D3) 125 5,000 unit PO DAILY 11/08/18 Unknown History mcg (5,000 unit) capsule fexofenadine 180 mg tablet 180 mg PO DAILY 11/08/18 Unknown History (Criselda Allergy) magnesium 250 mg tablet 250 mg PO DAILY 11/08/18 Unknown History potassium 99 mg tablet 2.5 meq PO DAILY 11/08/18 Unknown History rosuvastatin 5 mg tablet 5 mg PO DAILY 10/08/21 Unknown History fluticasone propionate 50 2 spray intranasal DAILY 09/23/22 04/25/24 History mcg/actuation nasal spray,suspension tirzepatide 7.5 mg/0.5 mL 12.5 mg subcut MOSQUEDA 09/23/22 04/15/24 History subcutaneous pen injector (Mounhanhro) vitamin A palmitate 3,000 mcg 3,000 mcg PO DAILY 09/23/22 Unknown History (10,000 unit) capsule beclomethasone dipropionate 80 1 inh inhalation Q12H 04/20/24 Unknown History mcg/actuation HFA breath activated aerosol (Qvar RediHaler) Allergy/AdvReac Type Severity Reaction Status Date / Time aspirin Allergy Severe Shortness Verified 04/20/24 14:02 of breath,SEVERE guaifenesin (From Mucinex) Allergy Mild Shortness Verified 04/20/24 14:02 of breath ibuprofen Allergy Mild Angioedema Verified 04/20/24 14:02 Sulfa (Sulfonamide Allergy Mild Rash Verified 04/20/24 14:02 Antibiotics) Family History Father Cancer Mother Diabetes Thyroid disorder Surgical History Hx of colonoscopy History of breast biopsy (~11/14/18) S/P nasal polypectomy History of mandibular surgery S/P hysterectomy Status post laparoscopic cholecystectomy Social History Smoking Status: Never smoker alcohol intake: never ROS Review of Systems ROS Unobtainable: other Constitutional Constitutional: Denies fatigue, fever(s), poor appetite, weight gain or weight loss ENT HEENT: Denies mouth lesions Cardiovascular Cardiovascular: Denies abdominal bloating, abdominal edema or abdominal pain Respiratory/Chest Respiratory/Chest: Denies change in mental status, change in phlegm color, chest congestion or chest tightness Gastrointestinal Gastrointestinal: Denies belching, bloating, change in bowel habits, change in stool character, chewing difficulty, coffee ground emesis, constipation, cramping, diarrhea, dyspepsia, dysphagia, early satiety, excessive flatus, fecal incontinence, heartburn, hematemesis, hematochezia, hemorrhoids, loose stools, melena, nausea, odynophagia, rectal bleeding, tenesmus, vomiting or weight changes Genitourinary Genitourinary: Denies abdominal discomfort, burning urination or itching Musculoskeletal Musculoskeletal: Reports as per HPI; Denies muscle weakness or myalgias Integumentary Integumentary: Denies jaundice Neurologic Neurologic: Denies lack of coordination or weakness Psychiatric Psychiatric: Denies confusion, depression, memory loss, mood swings, paranoia or suicidal ideation Endocrine Endocrinology: Denies systems reviewed and no addt'l complaints, except as documented Hematologic/Lymphatic Hematologic/Lymphatic: Denies anemia, easy bleeding, easy bruising or lymphadenopathy Allergic/Immunologic Allergic/Immunologic: Denies systems reviewed and no addt'l complaints, except as documented Vital Signs Vital Signs Vital Signs: 04/25/24 06:24 04/25/24 06:24 Temperature 98.0 F Temperature Source Temporal Pulse Rate 84 Respiratory Rate 14 Respiratory Pattern Normal Blood Pressure 123/84 H Blood Pressure Mean 97 Blood Pressure Source Monitor Blood Pressure Position Sitting Blood Pressure Location Left Arm Pulse Ox 100 Oxygen Delivery Method Room Air Weight Weight: 156 lb 4.924 oz Body Mass Index (BMI) 27.6 Physical Exam Const alert General Appearance: cooperative Orientation / Consciousness: oriented to person HEENT hearing grossly normal bilaterally Head and Scalp: normal to inspection Face and Sinus: face symmetric Nose: external nose normal Mouth: oral and palatal mucosa normal Eyes conjunctivae normal General Eye: normal appearance of both eyes Neck full ROM General: normal visual inspection Lymph Lymphatic: no lymphadenopathy noted Chest inspection of chest normal and palpation of chest normal Chest: symmetrical chest wall rise Resp normal respiratory effort Effort and Inspection: able to speak in complete sentences Cardio regular rate GI non-distended Percussion: normal to percussion Rectal Exam: deferred Neuro Speech: speech normal Gait (Neuro): normal gait Assessment & Plan Assessment/Plan (1) Encounter for screening for malignant neoplasm of colon: PLAN: She will undergo surveillance colonoscopy. She was explained alternatives, risk, benefits including not withstanding bleeding, infection, sepsis and perforation. She will have an ASA of 3.
--- NOTE | 2024-04-25 06:52 | PRE.ANES_ITS ---
ASA Classification* ASA Classification ASA Classification: 2 Assessment & Plan Anesthesia* Anesthesia Assessment Anesthesia Assessment: Discussed sedation and/or anesthesia options, risks, benefits, and alternatives with patient/parents/legal guardian/POA. Questions invited. The patient/parents/legal guardian/POA seems to understand and agrees to proceed with anesthesia plan. Reviewed the physical assessment, medical history, allergy history and patient home medications list prior to surgery/procedure/anesthetic and documented any changes. Performed airway and anesthesia risk assessments. Anesthesia Type Anesthesia Type: MAC History Source History Obtained from:: Patient and Chart Anesthesia Focused Assessment* Temperature: 98.0 F Pulse Rate: 84 Blood Pressure: 123/84 Respiratory Rate: 14 Pulse Ox: 100 Airway Assessment Mouth opens: >3 cm Mallampati Score: II Focused Labs Anesthesia Preop lab: CBC WBC 11.9 K/mm3 (4.4-11.0) H 02/26/22 08:17 RBC 4.59 M/mm3 (4.2-5.4) 02/26/22 08:17 Hgb 13.4 g/dL (12.0-15.0) 02/26/22 08:17 Hct 40.4 % (37-47) 02/26/22 08:17 Plt Count 262 K/mm3 (150-450) 02/26/22 08:17 CHEMISTRY Potassium 3.5 mmol/L (3.5-5.1) 08/25/20 14:57 Sodium 138 mmol/L (136-145) 08/25/20 14:57 BUN 12 mg/dL (7-18) 08/25/20 14:57 Creatinine 0.73 mg/dL (0.55-1.02) 08/25/20 14:57 Glucose 120 mg/dL (74-106) H 08/25/20 14:57 POC Glucose 102 mg/dL (74-106) 11/29/22 06:47 COAG Pre-Assessment Diagnosis/Proposed Procedure Planned Operative Procedure(s): CSCOPE Anesthesia History 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 When Was Last Pacemaker Check QUESTION #4 FULL TEXT: You/Your Family Experience fever (hyperthermia) with Anesthesia Last Oral Intake Last Oral intake: Last Oral Intake NPO since 03:00 04/25/24 06:24 Meds taken in AM with sips of No 04/25/24 06:24 water? 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 Female Yes 04/20/24 14:05 HX of Motion Sickness Yes 04/20/24 14:05 HX of N/V After Surgery Yes 04/20/24 14:05 Non-Smoker Yes 04/20/24 14:05 Duration of Surgery greater No 04/20/24 14:05 than 60 minutes Number of Risk Factors 4 04/20/24 14:05 PONV Score Severe Risk 04/20/24 14:05 Height & Weight Height & Weight: Anesthesia: Height & Weight Height 5 ft 3 in 04/25/24 06:24 Weight: 70.9 kg 04/25/24 06:24 Body Mass Index (BMI) 27.6 04/25/24 06:24 Respiratory Assessment Respiratory Assessment - zinc plating machine operator: Respiratory Tract Infection Hx - zinc plating machine operator Hx Respiratory Tract Infection No 04/20/24 14:05 STOP Sleep Apnea STOP Sleep Apnea - zinc plating machine operator: STOP Sleep Apnea - zinc plating machine operator Hx Hypertension No 04/20/24 14:05 Hx Sleep Apnea No 04/20/24 14:05 CPAP BIPAP Do you snore loudly (louder No 04/20/24 14:05 than talking or can be heard Do you often feel tired/ No 04/20/24 14:05 fatigued/ sleepy during daytime? Has anyone observed you stop No 04/20/24 14:05 breathing during sleep? STOP Results Negative 04/20/24 14:05 QUESTION #5 FULL TEXT : Do you snore loudly (louder than talking or can be heard through closed doors)? 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 Specify any problems Hx of Preganancy in last 3 N/A 04/20/24 14:05 Months Nurse Filling Out Transfusion NBUCHER 04/20/24 14:05 & Questions: Date: 04/20/24 04/20/24 14:05 Time: 14:06 04/20/24 14:05 Patient unable to answer at this time (ie. 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: /Reproductive Hx- zinc plating machine operator Hx Now Gestational Age (in weeks): EDC: Hx Hx Para Hx Section SAB No 04/20/24 14:05 Active Medications Active Medications: Current Medications Generic Name Dose Route Start Last Admin Trade Name Freq PRN Reason Stop Dose Admin Lactated Ringer's 1,000 mls @ 15 mls/hr 04/25/24 06:00 04/25/24 06:28 IV 15 mls/hr .Q48H MARISA Administration PFSH Medical History Fatty liver Non-smoker Wears glasses Post-menopausal High cholesterol Back pain Gastric reflux Former smoker Asthma Fibrocystic changes of left breast (~11/14/18) Endometriosis Diabetes Home Medications ?Medication ?Instructions ?Recorded ?Last Taken ?Type albuterol sulfate 90 mcg/actuation 2 puff inhalation Q6H PRN 11/08/18 Unknown History aerosol inhaler (Proventil HFA) Shortness Of Breath cholecalciferol (vitamin D3) 125 5,000 unit PO DAILY 11/08/18 Unknown History mcg (5,000 unit) capsule fexofenadine 180 mg tablet 180 mg PO DAILY 11/08/18 Unknown History (Criselda Allergy) magnesium 250 mg tablet 250 mg PO DAILY 11/08/18 Unknown History potassium 99 mg tablet 2.5 meq PO DAILY 11/08/18 Unknown History rosuvastatin 5 mg tablet 5 mg PO DAILY 10/08/21 Unknown History fluticasone propionate 50 2 spray intranasal DAILY 09/23/22 04/25/24 History mcg/actuation nasal spray,suspension tirzepatide 7.5 mg/0.5 mL 12.5 mg subcut MOSQUEDA 09/23/22 04/15/24 History subcutaneous pen injector (Ingridro) vitamin A palmitate 3,000 mcg 3,000 mcg PO DAILY 09/23/22 Unknown History (10,000 unit) capsule beclomethasone dipropionate 80 1 inh inhalation Q12H 04/20/24 Unknown History mcg/actuation HFA breath activated aerosol (Qvar RediHaler) Allergy/AdvReac Type Severity Reaction Status Date / Time aspirin Allergy Severe Shortness Verified 04/20/24 14:02 of breath,SEVERE guaifenesin (From Mucinex) Allergy Mild Shortness Verified 04/20/24 14:02 of breath ibuprofen Allergy Mild Angioedema Verified 04/20/24 14:02 Sulfa (Sulfonamide Allergy Mild Rash Verified 04/20/24 14:02 Antibiotics) Family History Father Cancer Mother Diabetes Thyroid disorder Surgical History Hx of colonoscopy History of breast biopsy (~11/14/18) S/P nasal polypectomy History of mandibular surgery S/P hysterectomy Status post laparoscopic cholecystectomy Social History Smoking Status: Never smoker alcohol intake: never Review of Systems (Anesthesia) ROS Narrative System reviewed and no additional complaints, except as documented.
--- NOTE | 2024-04-25 06:57 | PCM.PRE.AN2 ---
ASA Classification* ASA Classification ASA Classification: 2 Assessment & Plan Anesthesia* Anesthesia Assessment Anesthesia Assessment: Discussed sedation and/or anesthesia options, risks, benefits, and alternatives with patient/parents/legal guardian/POA. Questions invited. The patient/parents/legal guardian/POA seems to understand and agrees to proceed with anesthesia plan. Reviewed the physical assessment, medical history, allergy history and patient home medications list prior to surgery/procedure/anesthetic and documented any changes. Performed airway and anesthesia risk assessments. Anesthesia Type Anesthesia Type: MAC (see written pre anesthesia record for full assessment) Anesthesia Focused Assessment* Temperature: 98.0 F Pulse Rate: 84 Blood Pressure: 123/84 Respiratory Rate: 14 Pulse Ox: 100 Airway Assessment Mouth opens: >3 cm Mallampati Score: II Focused Labs Anesthesia Preop lab: CBC WBC 11.9 K/mm3 (4.4-11.0) H 02/26/22 08:17 RBC 4.59 M/mm3 (4.2-5.4) 02/26/22 08:17 Hgb 13.4 g/dL (12.0-15.0) 02/26/22 08:17 Hct 40.4 % (37-47) 02/26/22 08:17 Plt Count 262 K/mm3 (150-450) 02/26/22 08:17 CHEMISTRY Potassium 3.5 mmol/L (3.5-5.1) 08/25/20 14:57 Sodium 138 mmol/L (136-145) 08/25/20 14:57 BUN 12 mg/dL (7-18) 08/25/20 14:57 Creatinine 0.73 mg/dL (0.55-1.02) 08/25/20 14:57 Glucose 120 mg/dL (74-106) H 08/25/20 14:57 POC Glucose 102 mg/dL (74-106) 11/29/22 06:47 COAG Pre-Assessment Diagnosis/Proposed Procedure Planned Operative Procedure(s): CSCOPE Anesthesia History 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 When Was Last Pacemaker Check QUESTION #4 FULL TEXT: You/Your Family Experience fever (hyperthermia) with Anesthesia Last Oral Intake Last Oral intake: Last Oral Intake NPO since 03:00 04/25/24 06:24 Meds taken in AM with sips of No 04/25/24 06:24 water? 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 Female Yes 04/20/24 14:05 HX of Motion Sickness Yes 04/20/24 14:05 HX of N/V After Surgery Yes 04/20/24 14:05 Non-Smoker Yes 04/20/24 14:05 Duration of Surgery greater No 04/20/24 14:05 than 60 minutes Number of Risk Factors 4 04/20/24 14:05 PONV Score Severe Risk 04/20/24 14:05 Height & Weight Height & Weight: Anesthesia: Height & Weight Height 5 ft 3 in 04/25/24 06:24 Weight: 70.9 kg 04/25/24 06:24 Body Mass Index (BMI) 27.6 04/25/24 06:24 Respiratory Assessment Respiratory Assessment - ammunition and explosives handler: Respiratory Tract Infection Hx - 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 Has anyone observed you stop No 04/20/24 14:05 breathing during sleep? STOP Results Negative 04/20/24 14:05 QUESTION #5 FULL TEXT : Do you snore loudly (louder than talking or can be heard through closed doors)? 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 Specify any problems Hx of Preganancy in last 3 N/A 04/20/24 14:05 Months Nurse Filling Out Transfusion NBUCHER 04/20/24 14:05 & Questions: Date: 04/20/24 04/20/24 14:05 Time: 14:06 04/20/24 14:05 Patient unable to answer at this time (ie. 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Last Taken ?Type albuterol sulfate 90 mcg/actuation 2 puff inhalation Q6H PRN 11/08/18 Unknown History aerosol inhaler (Proventil HFA) Shortness Of Breath cholecalciferol (vitamin D3) 125 5,000 unit PO DAILY 11/08/18 Unknown History mcg (5,000 unit) capsule fexofenadine 180 mg tablet 180 mg PO DAILY 11/08/18 Unknown History (Criselda Allergy) magnesium 250 mg tablet 250 mg PO DAILY 11/08/18 Unknown History potassium 99 mg tablet 2.5 meq PO DAILY 11/08/18 Unknown History rosuvastatin 5 mg tablet 5 mg PO DAILY 10/08/21 Unknown History fluticasone propionate 50 2 spray intranasal DAILY 09/23/22 04/25/24 History mcg/actuation nasal spray,suspension tirzepatide 7.5 mg/0.5 mL 12.5 mg subcut MOSQUEDA 09/23/22 04/15/24 History subcutaneous pen injector (Mounjaro) vitamin A palmitate 3,000 mcg 3,000 mcg PO DAILY 09/23/22 Unknown History (10,000 unit) capsule beclomethasone dipropionate 80 1 inh inhalation Q12H 04/20/24 Unknown History mcg/actuation HFA breath activated aerosol (Qvar RediHaler) Allergy/AdvReac Type Severity Reaction Status Date / Time aspirin Allergy Severe Shortness Verified 04/20/24 14:02 of breath,SEVERE guaifenesin (From Mucinex) Allergy Mild Shortness Verified 04/20/24 14:02 of breath ibuprofen Allergy Mild Angioedema Verified 04/20/24 14:02 Sulfa (Sulfonamide Allergy Mild Rash Verified 04/20/24 14:02 Antibiotics) Family History Father Cancer Mother Diabetes Thyroid disorder Surgical History Hx of colonoscopy History of breast biopsy (~11/14/18) S/P nasal polypectomy History of mandibular surgery S/P hysterectomy Status post laparoscopic cholecystectomy Social History Smoking Status: Never smoker alcohol intake: never Review of Systems (Anesthesia) ROS Narrative System reviewed and no additional complaints, except as documented.
--- NOTE | 2024-04-25 07:27 | OP.CCLET_ITS ---
04/25/2024 Anisha Puga Re : Colonoscopy procedure for Lisa Bardales Dear Edd This procedure was performed on Thursday, April 25, 2024. My impressions and recommendations are as follows: Impressions : - Diverticulosis in the recto-sigmoid colon, in the sigmoid colon, in the transverse colon and at the hepatic flexure. - One 5 mm polyp in the cecum, removed with a cold biopsy forceps. Resected and retrieved. - Large lipoma in the ascending colon. Recommendations : - Repeat colonoscopy in 3 years for surveillance. - Continue present medications. My findings are described in the full procedure note, which is enclosed. If I can be of further assistance, please feel free to contact me at . Sincerely, Adriel Maria, 04/25/2024 7:26:42 AM This report has been signed electronically.
--- NOTE | 2024-04-25 07:27 | OP.COLON_ITS ---
Patient Name: Lisa Bardales Procedure Date: 04/25/2024 6:51 AM Date of : 1960 Age: 64 Procedure: Colonoscopy Indications: High risk colon cancer surveillance: Personal history of colonic polyps Providers: Adriel Maria DO Medicines: Monitored Anesthesia Care Patient Profile: This is a 64 year old female. Refer to note in patient chart for documentation of history and physical. Last Colonoscopy: 1 year ago. Complications: No immediate complications. Procedure: Pre-Anesthesia Assessment: - Prior to the procedure, a History and Physical was performed, and patient medications and allergies were reviewed. The patient is competent. The risks and benefits of the procedure and the sedation options and risks were discussed with the patient. All questions were answered and informed consent was obtained. Patient identification and proposed procedure were verified by the physician in the pre-procedure area. Mental Status Examination: alert and oriented. Airway Examination: normal oropharyngeal airway and neck mobility. Respiratory Examination: clear to auscultation. CV Examination: normal. Prophylactic Antibiotics: The patient does not require prophylactic antibiotics. Prior Anticoagulants: The patient has taken no anticoagulant or antiplatelet agents except for NSAID medication. ASA Grade Assessment: II - A patient with mild systemic disease. After reviewing the risks and benefits, the patient was deemed in satisfactory condition to undergo the procedure. The anesthesia plan was to use monitored anesthesia care (MAC). Immediately prior to administration of medications, the patient was re-assessed for adequacy to receive sedatives. The heart rate, respiratory rate, oxygen saturations, blood pressure, adequacy of pulmonary ventilation, and response to care were monitored throughout the procedure. The physical status of the patient was re-assessed after the procedure. After I obtained informed consent, the scope was passed under direct vision. Throughout the procedure, the patient's blood pressure, pulse, and oxygen saturations were monitored continuously. The Colonoscope was introduced through the anus and advanced to the cecum, identified by appendiceal orifice and ileocecal valve. The colonoscopy was performed without difficulty. The patient tolerated the procedure well. The quality of the bowel preparation was adequate. The ileocecal valve, appendiceal orifice, and rectum were photographed. Scope In: 7:05:36 AM Scope Withdrawal Time 0 hours 10 minutes 18 seconds Scope Out: 7:19:20 AM Total Procedure Duration Time 0 hours 13 minutes 44 seconds Findings: The perianal and digital rectal examinations were normal. Small-mouthed diverticula were found in the recto-sigmoid colon, sigmoid colon, transverse colon and hepatic flexure. A 5 mm polyp was found in the cecum. The polyp was sessile. The polyp was removed with a cold biopsy forceps. Resection and retrieval were complete. Verification of patient identification for the specimen was done. Estimated blood loss was minimal. There was a large lipoma, in the ascending colon. Impression: - Diverticulosis in the recto-sigmoid colon, in the sigmoid colon, in the transverse colon and at the hepatic flexure. - One 5 mm polyp in the cecum, removed with a cold biopsy forceps. Resected and retrieved. - Large lipoma in the ascending colon. Recommendation: - Repeat colonoscopy in 3 years for surveillance. - Continue present medications. Procedure Code(s): --- Professional --- 98557, Colonoscopy, flexible; with biopsy, single or multiple CPT copyright 2021 [employer]. All rights reserved. The codes documented in this report are preliminary and upon oracle programmer review may be revised to meet current compliance requirements. Adriel Maria DO 04/25/2024 7:26:42 AM This report has been signed electronically. Number of Addenda: 0 Note Initiated On: 04/25/2024 6:51 AM
--- NOTE | 2024-04-25 07:29 | PCM.POST.ANE ---
Anesthesia: Postop Eval I Current Vital Signs Temperature: 98.1 F Pulse Rate: 74 Blood Pressure: 91/58 Respiratory Rate: 16 Pulse Ox: 98 Oxygen Delivery Method: Room Air Assessment Airway patent: Yes Spontaneous unlabored respirations: Yes Mental status: Awake and Calm nausea: No Vomiting: No Anesthesia Complication: No Fluid Hydration Crystalloid volume administer (ml): 600 Total IV fluid infused: 600 Progress Note Anesthesia document: Postop Eval 1 completed: Yes
[2024-04-25 08:44] LABS: Bedside Glucose 86 mg/dL (74-106)
--- NOTE | 2024-04-25 09:25 | PCM.POSTANE2 ---
Anesthesia Postop Eval I Sum Postop Eval Completion status Anesthesia document: Postop Eval 1 completed: Yes Anesthesia Postop Eval I Summary Anesthesia Postop Eval I Summary: Anesthesia Postop Eval I: Assessment Summary Airway patent Yes 04/25/24 07:29 [email or web address] Spontaneous unlabored Yes 04/25/24 07:29 [email or web address] respirations Mental status Awake,Calm 04/25/24 07:29 [email or web address] nausea No 04/25/24 07:29 [email or web address] Vomiting No 04/25/24 07:29 [email or web address] Anesthesia Postop Eval I: Fluid Summary Crystalloid volume administer 600 04/25/24 07:29 [email or web address] (ml) Colloids volume administered ( ml) Blood Product volume administered (ml) Total IV fluid infused 600 04/25/24 07:29 [email or web address] Anesthesia Postop Eval I: Summary Notes Anesthesia Complication No 04/25/24 07:29 [email or web address] Anesthesia Complication Comment: Post-operative progress note Anesthesia: Postop Eval II Evaluation Mental status: Awake Pain Level: 0 nausea: No Vomiting: No
== END 2024-04-25 08:08 | disposition home or self-care (01) ==
LOC: EN 05:52 → AC 05:53
PROVIDERS: PCP Internal Medicine; Referring Provider Internal Medicine; Visit Provider Internal Medicine Gastroenterology
PROC: 0DJD8ZZ Inspection of Lower Intestinal Tract, Via Natural or Artificial Opening Endoscopic (ICD-10-PCS; CPT 45378; principal; 2024-04-25 06:55)
DX: Z12.11 Encounter for screening for malignant neoplasm of colon (principal); E11.9 Type 2 diabetes mellitus without complications; D12.0 Benign neoplasm of cecum; K57.30 Diverticulosis of large intestine without perforation or abscess without bleeding; D17.5 Benign lipomatous neoplasm of intra-abdominal organs; E78.00 Pure hypercholesterolemia, unspecified; Z79.85 Long-term (current) use of injectable non-insulin antidiabetic drugs; Z86.010 Personal history of colon polyps
CPT/HCPCS: 45380; 82962; 88305; J7120; J2405

== ENCOUNTER → 2025-04-15 | Outpatient (CLI) | payer MEDICARE, OTHER, SELFPAY ==
--- NOTE | 2025-04-15 10:02 | BI_ITS ---
EXAM: SCRN MAMM (CAD)W/AMBAR BILAT DATE: 04/15/2025 CLINICAL HISTORY: F, Age 65 y/o , SCREENING TECHNIQUE: SCRN MAMM (CAD)W/AMBAR BILAT COMPARISON: Prior exam(s) dated 01/18/2024 and 09/22/2022 FINDINGS: TISSUE DENSITY: Must pick one of these options! Bilateral Breast Mammographic Findings: No suspicious masses, suspicious clustered microcalcifications, architectural distortion or secondary sign of malignancy is identified in either breast. Benign-appearing round microcalcifications are seen in both breasts. A radiopaque clip is seen in the superior medial aspect of the left breast. The biopsy was benign. Post biopsy site is stable. Stable benign-appearing intramammary lymph node in the superior outer, far posterior aspect of the left breast is noted. BI/SCRN MAMM (CAD)W/AMBAR BILAT IMPRESSION: Stable bilateral screening mammogram. OVERALL FINAL ASSESSMENT BI-RADS 2: BENIGN RECOMMENDATION: Routine annual follow-up in 1 Year A letter with findings and recommendations will be mailed to the patient. Reading Location: [id number]
== END | disposition home or self-care (01) ==
PROVIDERS: PCP Internal Medicine; Referring Provider Internal Medicine; Visit Provider Internal Medicine
DX: Z12.31 Encounter for screening mammogram for malignant neoplasm of breast (principal)
CPT/HCPCS: 77063; 77067

== ENCOUNTER → 2025-07-23 | Outpatient (CLI) | payer MEDICARE, OTHER, SELFPAY ==
--- NOTE | 2025-07-23 08:08 | BD_ITS ---
PROCEDURE: DEXA BONE DENSITY STUDY 07/23/2025 REASON FOR EXAM: F, age 65 y/o . Postmenopausal. TECHNIQUE: Procedure Code: BDDBD Modality: DX Procedure: DEXA BONE DENSITY STUDY COMPARISON: July 19, 2023. FINDINGS: BMD and T-SCORES Lumbar spine: 0.891 g/cm2, T-score -1.2 Levels: L1 through L4 Change from prior: Improvement of 2.4%. Left femoral neck: 0.581 g/cm2, T-score -2.4 Femoral neck comparison data not recommended for monitoring change. Left total hip: 0.796 g/cm2, T-score -1.2 Change from prior: Loss of 4.5%. Right femoral neck: 0.601 g/cm2, T-score -2.2 Femoral neck comparison data not recommended for monitoring change. Right total hip: 0.778 g/cm2, T-score -1.3 Change from prior: Loss of 5.8%. The World Health Organization has defined the following categories based on bone density: Normal bone density: T-score equal to or greater than -1.0 Osteopenia: T-score between -1.0 and -2.5 Osteoporosis: T-score equal to or less than -2.5 FRAX (or Comparable) Fracture Risk Assessment: 10 Year Probability of Fracture: Major Osteoporotic Fracture: 32% Hip Fracture: 6.5% (Note: FRAX is not to be reported in setting of normal range bone density, osteoporosis on DEXA, known history of osteoporosis, prior osteoporotic hip or vertebral fracture, or for any patient undergoing pharmacological treatment for bone loss.) The National Osteoporosis Foundation (NOF) recommends pharmacological treatment for patients with a FRAX 10-year risk of 3% or higher for a hip fracture, or 20% or higher for a major osteoporotic fracture, to prevent osteoporosis and reduce fracture risk. The patient does meet the pharmacological treatment recommendations for prevention of osteoporosis. BD/Dexa Bone Density Study IMPRESSION: OSTEOPENIA. Recommend follow-up as clinically warranted. Reading Location: [id number]
== END | disposition home or self-care (01) ==
LOC: OPBD 08:04
PROVIDERS: PCP Internal Medicine; Referring Provider Internal Medicine; Visit Provider Internal Medicine
DX: Z78.0 Asymptomatic menopausal state (principal)
CPT/HCPCS: 77080

== ENCOUNTER → 2025-07-26 | Outpatient (CLI) | payer MEDICARE, OTHER, SELFPAY ==
[2025-07-26 14:59] LABS: Hematocrit 41.3 % (37-47); Hemoglobin 13.7 g/dL (12.0-15.0); Immature Granulocytes Count 0.030 X10^3/uL (0.0-0.0); Mean Corp Hgb Conc 33.2 g/dL (32-36); Mean Corpuscular Volume 90.2 fL (81-99); Mean Platelet Vol. 9.8 fl (6.2-12.0); NRBC Flagged by Analyzer 0 % (0-5); Platelet Count 262 K/mm3 (150-450); RBC Distribution Width CV 13.3 % (11.6-14.6); RBC Distribution Width SD 43.8 fl (35.1-43.9); Red Blood Count 4.58 M/mm3 (4.2-5.4); White Blood Count 7.4 K/mm3 (4.4-11.0)
[2025-07-26 15:16] LABS: AST(SGOT) 37 U/L (<=31); Alanine Aminotransfer ALT/SGPT 44 U/L (<=34); Albumin, Serum 4.4 g/dL (3.4-4.8); Alkaline Phosphatase 75 U/L (35-104); Anion Gap 12 (5-15); BUN 18 mg/dL (4-19); BUN/Creat Ratio 20.7 RATIO (10-20); Calcium,Total 9.4 mg/dL (7.6-11.0); Carbon Dioxide 25.6 mmol/L (21.0-32.0); Chloride 102 mmol/L (98-108); Cholesterol 291 mg/dL (<=200); Globulin 3.0 g/dL (2.2-4.2); Glucose 89 mg/dL (70-99); Low Density Lipoprotein Calc. 209 mg/dL; Potassium 3.9 mmol/L (3.3-5.1); Triglycerides 76 mg/dL; Very Low Density Lipoprotein 15 mg/dL (5-40); cholesterol:hdl ratio screen 4.15
== END | disposition home or self-care (01) ==
LOC: CIMLAB 13:19
PROVIDERS: PCP Internal Medicine; Referring Provider Internal Medicine; Visit Provider Internal Medicine
DX: E11.9 Type 2 diabetes mellitus without complications (principal); E78.49 Other hyperlipidemia
CPT/HCPCS: 36415; 80053; 80061; 83036; 85025